=== PATIENT | male | born 1975 | race Caucasian/White ===

== ENCOUNTER → 2016-06-26 | Outpatient (CLI) | payer MEDICARE, OTHER | END | disposition home or self-care (01) | LOC: LABWHC1 09:49 | PROVIDERS: ATTEND Internal Medicine Nephrology | DX: N39.0 Urinary tract infection, site not specified (principal); Z94.0 Kidney transplant status; Z79.899 Other long term (current) drug therapy | CPT/HCPCS: 87086 ==

== ENCOUNTER → 2017-11-10 | Outpatient (CLI) | payer MEDICARE, OTHER | END | disposition home or self-care (01) | LOC: LABWHC1 10:06 | PROVIDERS: ATTEND Internal Medicine Endocrinology, Diabetes & Metabolism | DX: E10.65 Type 1 diabetes mellitus with hyperglycemia (principal) | CPT/HCPCS: 36415; 84681 ==

== ENCOUNTER → 2018-09-19 | Outpatient (CLI) | payer MEDICARE, OTHER | END | disposition home or self-care (01) | LOC: LABWHC1 11:03 | PROVIDERS: ATTEND Nurse Practitioner Family | DX: Z53.9 Procedure and treatment not carried out, unspecified reason (principal) ==

== ENCOUNTER 2018-11-02 19:25 | Inpatient (IN) | payer MEDICARE, OTHER ==
[2018-11-02] MEDS ORDERED: ONDANSETRON 4 MG/2 ML VIAL IVP STA (19:53)
[2018-11-02] MEDS ORDERED: SODIUM CHLORIDE 0.9% 1,000 ML IV STA (19:53)
[2018-11-02] MEDS ORDERED: PROMETHAZINE INJ 25 MG in SODIUM CHLORIDE 0.9% 50 ML IVPB STA (19:58)
--- NOTE | 2018-11-02 20:01 | ED ---
Abdominal Pain HPI - General Chief Complaint: Abdominal Pain Stated Complaint: Vomiting Time Seen by Provider: 11/02/18 19:35 Source: patient, EMS Mode of arrival: EMS Limitations: no limitations - History of Present Illness Initial Comments: Patient is a 43-year-old male with history of type 1 diabetes, pancreatic and kidney transplant is presenting to the emergency department after a transfer from [facility] for intractable nausea and vomiting and abdominal pain. Patient reports she developed nausea and vomiting, as well as sudden onset of generalized abdominal pain earlier today. Patient reports the pain is not alleviated with any specific movements. Patient denies any hemoptysis the states his vomit is dark. Patient reports generalized abdominal pain that radiates to the back. Patient denies any urinary or bowel symptoms. Patient was given antiemetics, Dilaudid of fluids. Patient has an insulin pump - Related Data Home Medications Medication Instructions Recorded Confirmed Aspirin 325 mg PO DAILY 02/17/15 11/02/18 Magnesium Oxide [Mag-Ox] 400 mg PO TID 02/17/15 11/02/18 predniSONE 10 mg PO DAILY 06/22/15 11/02/18 Zolpidem Tartrate [Ambien] 5 mg PO HS 11/17/16 11/02/18 Itraconazole Oral Susp [Sporanox 20 mg PO BID 02/03/17 11/02/18 Oral Susp] Tacrolimus [Prograf] 0.5 mg PO DAILY 02/03/17 11/02/18 Insulin Aspart (For Pump) [NovoLOG 0.01 unit SQ-PUMP CONTINUOUS 11/02/18 11/02/18 (For Pump)] Lisinopril [Zestril] 2.5 mg PO HS 11/02/18 11/02/18 buPROPion SR [Wellbutrin Sr] 150 mg PO BID 11/02/18 11/02/18 Allergies Allergy/AdvReac Type Severity Reaction Status Date / Time No Known Allergies Allergy Verified 11/02/18 20:18 Review of Systems ROS Statement: Those systems with pertinent positive or pertinent negative responses have been documented in the HPI. ROS Other: All systems not noted in ROS Statement are negative. Past Medical History Past Medical History: Coronary Artery Disease (CAD), Diabetes Mellitus, Dialysis, Eye Disorder, GERD/Reflux, Hypertension, Osteoarthritis (OA), Renal Disease, Thyroid Disorder Additional Past Medical History / Comment(s): heart murmer, LEFT EYE DIABETIC RETINOPATHY, psoriasis, occ edema lower legs, hx ulcer, hemodialysis (Mon,Wed,Fri), hx anemia, renal failure, IBS. CMV virus. History of Any Multi-Drug Resistant Organisms: None Reported Past Surgical History: Cholecystectomy, Orthopedic Surgery Additional Past Surgical History / Comment(s): LT ARM FISTULA FOR DIAYLISIS, tendon surgery rt hand,. Kidney and Pancreas transplant - September 2014. PICC line insertion and removal. Past Anesthesia/Blood Transfusion Reactions: Motion Sickness Additional Past Anesthesia/Blood Transfusion Reaction / Comment(s): PANIC ATTACKS Past Psychological History: Anxiety Smoking Status: Former smoker Past Alcohol Use History: None Reported Past Drug Use History: Marijuana - Past Family History Father Family Medical History: Cancer, Liver Disease, Myocardial Infarction (ID) Additional Family Medical History / Comment(s): AT AGE 50 Mother Family Medical History: Cancer, Thyroid Disorder Additional Family Medical History / Comment(s): THYROID CA. General Exam Limitations: no limitations General appearance: alert, in no apparent distress Head exam: Present: atraumatic, normocephalic, normal inspection Eye exam: Present: normal appearance, PERRL, EOMI Pupils: Present: normal accommodation ENT exam: Present: normal exam, normal oropharynx, mucous membranes dry, TM's normal bilaterally, normal external ear exam Neck exam: Present: normal inspection, full ROM Respiratory exam: Present: normal lung sounds bilaterally Cardiovascular Exam: Present: regular rate, normal rhythm, systolic murmur GI/Abdominal exam: Present: soft, tenderness (Generalized tenderness), normal bowel sounds. Absent: guarding, rebound Extremities exam: Present: normal inspection, full ROM, normal capillary refill, other (+2 dorsalis pedis and posterior tibialis bilaterally.). Absent: pedal edema, joint swelling Back exam: Present: normal inspection, full ROM Neurological exam: Present: alert, oriented X3 Psychiatric exam: Present: normal affect, normal mood Skin exam: Present: warm, intact, normal color Course Vital Signs 11/02/18 11/02/18 11/02/18 19:28 19:44 20:26 Temperature 97.7 F Pulse Rate 74 77 81 Respiratory 18 18 18 Rate Blood Pressure 197/123 189/105 189/110 O2 Sat by Pulse 98 99 96 Oximetry Medical Decision Making - Medical Decision Making Patient is a 43-year-old male with history of type 1 diabetes, pancreatic and kidney transplant is presenting to the emergency department via transfer from [facility] for nausea vomiting abdominal pain this symptoms started today with a sudden onset. Patient denies any hemoptysis. Patient reports generalized abdominal pain with no alleviating or aggravating factors. Patient does use an insulin pump. On initial ED evaluation [facility] he had elevated lactate of 2.3. Patient was given fluids, analgesia and antiemetics with minimal improvement. Patient was sent to [facility]. Repeat labs are somewhat unremarkable. Lactic is within normal range. Patient given fluids and antiemetics overnight tried at the previous hospital. Patient will be admitted for further medical management. Dr. Youssef also examined the patient and is in agreement with the treatment plan. Admitting physician is Dr. Posadas - Lab Data Result diagrams: 11/02/18 19:50 11/02/18 19:50 Lab Results 11/02/18 11/02/18 11/02/18 Range/Units 19:30 19:50 19:50 WBC 8.9 (3.8-10.6) k/uL RBC 6.19 H (4.30-5.90) m/uL Hgb 16.9 (13.0-17.5) gm/dL Hct 53.9 H (39.0-53.0) % MCV 87.1 (80.0-100.0) fL MCH 27.4 (25.0-35.0) pg MCHC 31.4 (31.0-37.0) g/dL RDW 19.2 H (11.5-15.5) % Plt Count 271 (150-450) k/uL Neutrophils % 83 % Lymphocytes % 9 % Monocytes % 5 % Eosinophils % 0 % Basophils % 1 % Neutrophils # 7.4 (1.3-7.7) k/uL Lymphocytes # 0.8 L (1.0-4.8) k/uL Monocytes # 0.5 (0-1.0) k/uL Eosinophils # 0.0 (0-0.7) k/uL Basophils # 0.1 (0-0.2) k/uL Hypochromasia Slight Anisocytosis Slight Sodium 138 (137-145) mmol/L Potassium 4.8 (3.5-5.1) mmol/L Chloride 106 (98-107) mmol/L Carbon Dioxide 22 (22-30) mmol/L Anion Gap 10 mmol/L BUN 20 (9-20) mg/dL Creatinine 0.93 (0.66-1.25) mg/dL Est GFR (CKD-EPI)AfAm >90 (>60 ml/min/1.73 sqM) Est GFR (CKD-EPI)NonAf >90 (>60 ml/min/1.73 sqM) Glucose 146 H (74-99) mg/dL Plasma Lactic Acid Lazaro (0.7-2.0) mmol/L Calcium 9.4 (8.4-10.2) mg/dL Total Bilirubin 0.7 (0.2-1.3) mg/dL AST 43 (17-59) U/L ALT 46 (21-72) U/L Alkaline Phosphatase 59 (38-126) U/L Total Protein 6.8 (6.3-8.2) g/dL Albumin 3.8 (3.5-5.0) g/dL Amylase 34 (30-110) U/L Lipase 37 (23-300) U/L Urine Color Yellow Urine Appearance Clear (Clear) Urine pH 6.0 (5.0-8.0) Ur Specific [place] 1.015 (1.001-1.035) Urine Protein Trace H (Negative) Urine Glucose (UA) Trace H (Negative) Urine Ketones 1+ H (Negative) Urine Blood Trace H (Negative) Urine Nitrite Negative (Negative) Urine Bilirubin Negative (Negative) Urine Urobilinogen <2.0 (<2.0) mg/dL Ur Leukocyte Esterase Negative (Negative) Urine RBC 6 H (0-5) /hpf Urine WBC 1 (0-5) /hpf Ur Squamous Epith Cells <1 (0-4) /hpf Urine Mucus Rare H (None) /hpf 11/02/18 Range/Units 19:50 WBC (3.8-10.6) k/uL RBC (4.30-5.90) m/uL Hgb (13.0-17.5) gm/dL Hct (39.0-53.0) % MCV (80.0-100.0) fL MCH (25.0-35.0) pg MCHC (31.0-37.0) g/dL RDW (11.5-15.5) % Plt Count (150-450) k/uL Neutrophils % % Lymphocytes % % Monocytes % % Eosinophils % % Basophils % % Neutrophils # (1.3-7.7) k/uL Lymphocytes # (1.0-4.8) k/uL Monocytes # (0-1.0) k/uL Eosinophils # (0-0.7) k/uL Basophils # (0-0.2) k/uL Hypochromasia Anisocytosis Sodium (137-145) mmol/L Potassium (3.5-5.1) mmol/L Chloride (98-107) mmol/L Carbon Dioxide (22-30) mmol/L Anion Gap mmol/L BUN (9-20) mg/dL Creatinine (0.66-1.25) mg/dL Est GFR (CKD-EPI)AfAm (>60 ml/min/1.73 sqM) Est GFR (CKD-EPI)NonAf (>60 ml/min/1.73 sqM) Glucose (74-99) mg/dL Plasma Lactic Acid [place] 1.2 (0.7-2.0) mmol/L Calcium (8.4-10.2) mg/dL Total Bilirubin (0.2-1.3) mg/dL AST (17-59) U/L ALT (21-72) U/L Alkaline Phosphatase (38-126) U/L Total Protein (6.3-8.2) g/dL Albumin (3.5-5.0) g/dL Amylase (30-110) U/L Lipase (23-300) U/L Urine Color Urine Appearance (Clear) Urine pH (5.0-8.0) Ur Specific [place] (1.001-1.035) Urine Protein (Negative) Urine Glucose (UA) (Negative) Urine Ketones (Negative) Urine Blood (Negative) Urine Nitrite (Negative) Urine Bilirubin (Negative) Urine Urobilinogen (<2.0) mg/dL Ur Leukocyte Esterase (Negative) Urine RBC (0-5) /hpf Urine WBC (0-5) /hpf Ur Squamous Epith Cells (0-4) /hpf Urine Mucus (None) /hpf Disposition Clinical Impression: Nausea & vomiting, Abdominal pain Disposition: ADMITTED IP TO THIS [facility] Condition: Stable Instructions (If sedation given, give patient instructions): Abdominal Pain (ED) Additional Instructions: Patient will be admitted Is patient prescribed a controlled substance at d/c from ED?: No Referrals: None,Stated [Primary Care Provider] - 1-2 days Time of Disposition: 20:44
[2018-11-02 20:10] LABS: ALT 46 U/L (21-72); AST 43 U/L (17-59); African American GFR (CKD) >90 (>60 ml/min/1.73 sqM); Albumin 3.8 g/dL (3.5-5.0); Alkaline Phosphatase 59 U/L (38-126); Amylase 34 U/L (30-110); Anion Gap 10 mmol/L; Blood Urea Nitrogen 20 mg/dL (9-20); Calcium 9.4 mg/dL (8.4-10.2); Carbon Dioxide 22 mmol/L (22-30); Chloride 106 mmol/L (98-107); Glucose 146 mg/dL (74-99); Sodium 138 mmol/L (137-145); Total Bilirubin 0.7 mg/dL (0.2-1.3); Total Protein 6.8 g/dL (6.3-8.2)
[2018-11-02 20:12] LABS: Potassium 4.8 mmol/L (3.5-5.1)
[2018-11-02 20:17] LABS: Anisocytosis Slight; Basophils # (A) 0.1 k/uL (0-0.2); Basophils % (A) 1 %; Eosinophils % (A) 0 %; HCT 53.9 % (39.0-53.0); HGB 16.9 gm/dL (13.0-17.5); Hypochromasia Slight; Lymphocytes # (A) 0.8 k/uL (1.0-4.8); Lymphocytes % (A) 9 %; MCH 27.4 pg (25.0-35.0); MCHC 31.4 g/dL (31.0-37.0); MCV 87.1 fL (80.0-100.0); Mean Platelet Volume 7.2; Monocytes # (A) 0.5 k/uL (0-1.0); Monocytes % (A) 5 %; Neutrophils # (A) 7.4 k/uL (1.3-7.7); Neutrophils % (A) 83 %; Platelet Count 271 k/uL (150-450); RBC 6.19 m/uL (4.30-5.90); RDW 19.2 % (11.5-15.5); WBC 8.9 k/uL (3.8-10.6)
[2018-11-02 20:31] LABS: Appearance,Urine Clear (Clear); Bilirubin,Urine Negative (Negative); Blood,Urine Trace (Negative); Color,Urine Yellow; Glucose,Urine (UA) Trace (Negative); Ketones,Urine 1+ (Negative); Leukocyte Esterase,Urine Negative (Negative); Mucus,Urine Rare /hpf; Nitrite,Urine Negative (Negative); Protein,Urine Trace (Negative); RBC,Urine 6 /hpf (0-5); Specific Gravity,Urine 1.015 (1.001-1.035); Squamous Epithelial Cell,Urine <1 /hpf (0-4); Urobilinogen,Urine <2.0 mg/dL (<2.0); WBC,Urine 1 /hpf (0-5)
[2018-11-02] MEDS ORDERED: NALOXONE 0.4 MG/ML 1 ML VIAL IV PRN (20:54)
[2018-11-02] MEDS: HYDROmorphone 1 MG/ML 1 ML SYRINGE IVP PRN (21:23)
[2018-11-02] MEDS ORDERED: hydrALAZINE HCL 20 MG/ML 1 ML VIAL IVP STA (21:24)
[2018-11-02] MEDS: SODIUM CHLORIDE 0.9% 1,000 ML IV SCH (21:35)
[2018-11-02] MEDS ORDERED: PROMETHAZINE 25 MG TAB PO PRN (22:00)
[2018-11-02] MEDS: ONDANSETRON 4 MG/2 ML VIAL IVP PRN (22:01)
[2018-11-02 22:41] LABS: Glucose,Whole Blood 117 mg/dL (75-99)
[2018-11-03 00:52] LABS: Glucose,Whole Blood 112 mg/dL (75-99)
[2018-11-03] MEDS: PROCHLORPERAZINE 5 MG TAB PO PRN ×2 (02:01→12:01)
[2018-11-03] MEDS: HYDROmorphone 0.5 MG/0.5 ML SYRINGE IVP PRN ×3 (02:04→18:20)
[2018-11-03] MEDS: ONDANSETRON 4 MG/2 ML VIAL IVP PRN ×2 (05:07→14:39)
[2018-11-03] MEDS ORDERED: INSULIN ASPART (NovoLOG) 100 UNIT/ML VIAL SQ PRN (05:13)
[2018-11-03] MEDS ORDERED: INSULIN PUMP BASAL RATES 1 EACH MISC MISCELLANE PRN (05:13)
[2018-11-03] MEDS ORDERED: INSPUCOR MISCELLANE PRN (05:13)
[2018-11-03 07:13] LABS: Glucose,Whole Blood 117 mg/dL (75-99)
[2018-11-03] MEDS: INSULIN PUMP MEAL BOLUS 1 UNIT MISC MISCELLANE SCH ×4 (07:54→20:57)
[2018-11-03 11:50] LABS: Glucose,Whole Blood 120 mg/dL (75-99)
[2018-11-03] MEDS: SODIUM CHLORIDE 0.9% 1,000 ML IV SCH (12:09)
--- NOTE | 2018-11-03 12:22 | P.HPIM ---
History of Present Illness H&P Date: 11/03/18 Chief Complaint: If abdominal pain/vomiting 43-year-old male with history of type 1 diabetes, pancreatic and kidney transplant is presenting to the emergency department after a transfer from [facility] for intractable nausea and vomiting and abdominal pain. Patient reports she developed nausea and vomiting, as well as sudden onset of generalized abdominal pain earlier today. Patient reports the pain is not alleviated with any specific movements. Patient denies any hemoptysis the states his vomit is dark. Patient reports generalized abdominal pain that radiates to the back. Patient denies any urinary or bowel symptoms. Patient was given antiemetics, Dilaudid of fluids. Patient has an insulin pump Initial workup done at the outside facility including a CT of abdomen was unremarkable; patient is transferred to our facility for higher level of care Review of Systems Constitutional: Denies chills, Denies fever Eyes: denies blurred vision Ears, nose, mouth and throat: Reports epistaxis Cardiovascular: Denies chest pain, Denies dyspnea on exertion Respiratory: Denies cough with sputum Gastrointestinal: Reports abdominal pain, Reports nausea, Reports vomiting, Denies heartburn Genitourinary: Denies dysuria, Denies hematuria Musculoskeletal: Denies frequent falls, Denies gait dysfunction Integumentary: Denies change in hair/nails, Denies darkening of skin Neurological: Denies convulsions Psychiatric: Denies anxiety Endocrine: Denies cold intolerance, Denies heat intolerance Hematologic/Lymphatic: Denies easy bleeding, Denies easy bruising Past Medical History Past Medical History: Coronary Artery Disease (CAD), Diabetes Mellitus, Eye Disorder, GERD/Reflux, Hypertension, Osteoarthritis (OA), Renal Disease, Thyroid Disorder Additional Past Medical History / Comment(s): heart murmer, LEFT EYE DIABETIC RETINOPATHY, psoriasis, occ edema lower legs, hx ulcer, hemodialysis (Mon,Wed,Sun) not since 2014, hx anemia, renal failure, IBS. CMV virus. History of Any Multi-Drug Resistant Organisms: None Reported Past Surgical History: Cholecystectomy, Orthopedic Surgery Additional Past Surgical History / Comment(s): LT ARM FISTULA FOR DIAYLISIS, tendon surgery rt hand,. Kidney and Pancreas transplant - September 2014. PICC line insertion and removal. Past Anesthesia/Blood Transfusion Reactions: Motion Sickness Additional Past Anesthesia/Blood Transfusion Reaction / Comment(s): PANIC ATTACKS Past Psychological History: Anxiety Additional Psychological History / Comment(s): panic attacks Smoking Status: Former smoker Past Alcohol Use History: None Reported Additional Past Alcohol Use History / Comment(s): QUIT SMOKING 2008 Past Drug Use History: Marijuana Additional Drug Use History / Comment(s): denies use marijuana - Past Family History Father Family Medical History: Cancer, Liver Disease, Myocardial Infarction (NH) Additional Family Medical History / Comment(s): AT AGE 50 Mother Family Medical History: Cancer, Thyroid Disorder Additional Family Medical History / Comment(s): THYROID CA. Medications and Allergies Home Medications Medication Instructions Recorded Confirmed Type Aspirin 325 mg PO DAILY 02/17/15 11/02/18 History Magnesium Oxide [Mag-Ox] 400 mg PO TID 02/17/15 11/02/18 History predniSONE 10 mg PO DAILY 06/22/15 11/02/18 History Zolpidem Tartrate [Ambien] 5 mg PO HS 11/17/16 11/02/18 History Itraconazole Oral Susp [Sporanox 20 mg PO BID 02/03/17 11/02/18 History Oral Susp] Tacrolimus [Prograf] 0.5 mg PO DAILY 02/03/17 11/02/18 History Insulin Aspart (For Pump) [NovoLOG 0.01 unit SQ-PUMP CONTINUOUS 11/02/18 11/02/18 History (For Pump)] Lisinopril [Zestril] 2.5 mg PO HS 11/02/18 11/02/18 History buPROPion SR [Wellbutrin Sr] 150 mg PO BID 11/02/18 11/02/18 History Allergies Allergy/AdvReac Type Severity Reaction Status Date / Time No Known Allergies Allergy Verified 11/02/18 20:18 Physical Exam Vitals: Vital Signs Temp Pulse Pulse Resp BP BP Pulse Ox 11/03/18 08:20 98.3 F 74 16 187/88 95 11/03/18 00:19 98.2 F 74 14 142/85 97 11/02/18 22:40 81 188/97 11/02/18 22:15 98.0 F 82 14 184/102 97 11/02/18 21:43 97.7 F 88 18 126/89 96 11/02/18 21:33 88 18 126/89 96 11/02/18 20:26 81 18 189/110 96 11/02/18 19:44 77 18 189/105 99 11/02/18 19:28 97.7 F 74 18 197/123 98 Intake and Output 11/02/18 11/03/18 11/03/18 22:59 06:59 14:59 Intake Total 400 Balance 400 Intake: Intake, IV Titration 400 Amount Sodium Chloride 0.9% 1, 400 000 ml @ 75 mls/hr IV . [id number] [facility] Rx#:[id number] Other: # Voids 1 0 Weight 74.843 kg Limitations: no limitations General appearance: alert, in no apparent distress Head exam: Present: atraumatic, normocephalic, normal inspection Eye exam: Present: normal appearance, PERRL, EOMI Pupils: Present: normal accommodation ENT exam: Present: normal exam, normal oropharynx, mucous membranes dry, TM's normal bilaterally, normal external ear exam Neck exam: Present: normal inspection, full ROM Respiratory exam: Present: normal lung sounds bilaterally Cardiovascular Exam: Present: regular rate, normal rhythm, systolic murmur GI/Abdominal exam: Present: soft, tenderness (Generalized tenderness), normal bowel sounds. Absent: guarding, rebound Extremities exam: Present: normal inspection, full ROM, normal capillary refill, other (+2 dorsalis pedis and posterior tibialis bilaterally.). Absent: pedal edema, joint swelling Back exam: Present: normal inspection, full ROM Neurological exam: Present: alert, oriented X3 Psychiatric exam: Present: normal affect, normal mood Skin exam: Present: warm, intact, normal color Results CBC & Chem 7: 11/02/18 19:50 11/02/18 19:50 Labs: Abnormal Lab Results - Last 24 Hours (Table) 11/02/18 11/02/18 11/02/18 Range/Units 19:30 19:50 19:50 RBC 6.19 H (4.30-5.90) m/uL Hct 53.9 H (39.0-53.0) % RDW 19.2 H (11.5-15.5) % Lymphocytes # 0.8 L (1.0-4.8) k/uL Glucose 146 H (74-99) mg/dL POC Glucose (mg/dL) (75-99) mg/dL Urine Protein Trace H (Negative) Urine Glucose (UA) Trace H (Negative) Urine Ketones 1+ H (Negative) Urine Blood Trace H (Negative) Urine RBC 6 H (0-5) /hpf Urine Mucus Rare H (None) /hpf 11/02/18 11/03/18 11/03/18 Range/Units 22:40 00:49 07:11 RBC (4.30-5.90) m/uL Hct (39.0-53.0) % RDW (11.5-15.5) % Lymphocytes # (1.0-4.8) k/uL Glucose (74-99) mg/dL POC Glucose (mg/dL) 117 H 112 H 117 H (75-99) mg/dL Urine Protein (Negative) Urine Glucose (UA) (Negative) Urine Ketones (Negative) Urine Blood (Negative) Urine RBC (0-5) /hpf Urine Mucus (None) /hpf Thrombosis Risk Factor Assmnt - Choose All That Apply Any of the Below Risk Factors Present?: Yes Each Factor Represents 1 point: Age 41-60 years Other Risk Factors: No Other congenital or acquired thrombophilia - If yes, enter type in comment: No Thrombosis Risk Factor Assessment Total Risk Factor Score: 1 Thrombosis Risk Factor Assessment Level: Low Risk Assessment and Plan Assessment: 1. Intractable abdominal pain/nausea/vomiting - We will continue with IV fluid hydration; advance diet as tolerated - Consult GI for further recommendations 2. Uncontrolled hypertension; restart patient on home dose of lisinopril 2.5 mg daily; we will add hydralazine to be used when necessary for systolic blood pressure greater than 160 3. Diabetes mellitus type 1; patient uses insulin pump; we will continue; we will monitor Accu-Cheks every before meals and at bedtime with insulin sliding scale 4. Depression; continue with Wellbutrin 150 mg by mouth twice a day 5. DVT prophylaxis; early ambulation CODE STATUS; full code
[2018-11-03] MEDS: MAGNESIUM OXIDE 400 MG TAB PO SCH ×2 (16:00→20:56)
[2018-11-03 17:29] LABS: Glucose,Whole Blood 110 mg/dL (75-99)
[2018-11-03 20:22] LABS: Glucose,Whole Blood 120 mg/dL (75-99)
[2018-11-03] MEDS: LISINOPRIL 2.5 MG TAB PO SCH (20:56)
[2018-11-03] MEDS: buPROPion SR 150 MG TABLET.ER PO SCH (20:56)
[2018-11-03] MEDS: ITRACONAZOLE ORAL SUSP 1,500 MG/150 ML BOTTLE PO SCH (20:56)
[2018-11-04] MEDS: SODIUM CHLORIDE 0.9% 1,000 ML IV SCH ×2 (00:07→13:00)
[2018-11-04 02:13] LABS: Glucose,Whole Blood 105 mg/dL (75-99)
[2018-11-04] MEDS: HYDROmorphone 0.5 MG/0.5 ML SYRINGE IVP PRN ×4 (04:26→18:56)
[2018-11-04 06:51] LABS: Glucose,Whole Blood 85 mg/dL (75-99)
[2018-11-04 07:19] LABS: Glucose,Whole Blood 89 mg/dL (75-99)
[2018-11-04 08:13] LABS: African American GFR (CKD) >90 (>60 ml/min/1.73 sqM); Anion Gap 7 mmol/L; Blood Urea Nitrogen 19 mg/dL (9-20); Calcium 9.4 mg/dL (8.4-10.2); Carbon Dioxide 26 mmol/L (22-30); Chloride 101 mmol/L (98-107); Glucose 88 mg/dL (74-99); Sodium 134 mmol/L (137-145)
[2018-11-04 08:33] LABS: Anisocytosis Slight; Basophils # (A) 0.1 k/uL (0-0.2); Basophils % (A) 1 %; Eosinophils % (A) 0 %; HCT 56.3 % (39.0-53.0); HGB 17.9 gm/dL (13.0-17.5); Lymphocytes # (A) 1.4 k/uL (1.0-4.8); Lymphocytes % (A) 15 %; MCH 27.7 pg (25.0-35.0); MCHC 31.8 g/dL (31.0-37.0); Mean Platelet Volume 7.1; Monocytes # (A) 0.7 k/uL (0-1.0); Monocytes % (A) 7 %; Neutrophils # (A) 7.2 k/uL (1.3-7.7); Neutrophils % (A) 74 %; Platelet Count 285 k/uL (150-450); RBC 6.47 m/uL (4.30-5.90); RDW 17.9 % (11.5-15.5); WBC 9.8 k/uL (3.8-10.6)
[2018-11-04] MEDS: INSULIN PUMP MEAL BOLUS 1 UNIT MISC MISCELLANE SCH ×4 (09:55→21:21)
[2018-11-04] MEDS: MAGNESIUM OXIDE 400 MG TAB PO SCH ×3 (09:56→21:17)
[2018-11-04] MEDS: TACROLIMUS 0.5 MG CAP PO SCH (09:56)
[2018-11-04] MEDS: predniSONE 10 MG TAB PO SCH (09:56)
[2018-11-04] MEDS: ASPIRIN 325 MG TAB PO SCH (09:56)
[2018-11-04] MEDS: buPROPion SR 150 MG TABLET.ER PO SCH ×2 (09:56→21:34)
[2018-11-04] MEDS: ITRACONAZOLE ORAL SUSP 1,500 MG/150 ML BOTTLE PO SCH ×2 (09:57→21:18)
[2018-11-04 12:03] LABS: Glucose,Whole Blood 101 mg/dL (75-99)
[2018-11-04] MEDS ORDERED: INSULIN PUMP TARGET GLUCOSE 1 EACH MISC MISCELLANE PRN (12:39)
[2018-11-04] MEDS ORDERED: INSULIN PUMP ACTIVE INSULIN 1 EACH MISC MISCELLANE PRN (12:39)
--- NOTE | 2018-11-04 16:45 | P.PN ---
Subjective Progress Note Date: 11/04/18 Principal diagnosis: 43-year-old male with history of type 1 diabetes, pancreatic and kidney transplant is presenting to the emergency department after a transfer from [facility] for intractable nausea and vomiting and abdominal pain. Patient reports he developed nausea and vomiting, as well as sudden onset of generalized abdominal pain earlier today. Patient reports the pain is not alleviated with any specific movements. Patient denies any hemoptysis the states his vomit is dark. Patient reports generalized abdominal pain that radiates to the back. Patient denies any urinary or bowel symptoms. Patient was given antiemetics, Dilaudid of fluids. Patient has an insulin pump Initial workup done at the outside facility including a CT of abdomen was unremarkable; patient is transferred to our facility for higher level of care 11/04/2018 Patient is up walking around in the room in no acute distress. Is currently waiting a consult with gastroenterology at this time. Patient denies any nausea or vomiting and has slowly started to eat and is being monitored closely. Patient does use an insulin pump and blood sugars are being monitored before meals at bedtime. Patient states he feels much better today. Patient denies any abdominal discomfort at this time. Chest pain, shortness of breath, or palpitations at this time. Patient is afebrile. Patient states he is unsure if this was his pancreas acting up or if this was just some type of gastric bug but feels much better. Guarded prognosis. Objective - Vital Signs Vital signs: Vital Signs Temp 97.9 F 11/04/18 15:00 Pulse 102 H 11/04/18 15:00 Resp 16 11/04/18 15:00 BP 146/86 11/04/18 15:00 Pulse Ox 97 11/04/18 15:00 Intake & Output 11/03/18 11/04/18 11/04/18 18:59 06:59 18:59 Intake Total 1290 950 Balance 1290 950 Intake: Intake, IV Titration 990 450 Amount Sodium Chloride 0.9% 1, 990 450 000 ml @ 75 mls/hr IV . [id number] [facility] Rx#:[id number] Oral 300 500 Other: Voiding Method Toilet Toilet # Voids 3 1 - Exam Gen: This is a 43-year-old male up and around the room in no acute distress. V ital signs are stable. Temp is 98.2F, pulse is 82, respirations are 16, blood pressure is 156/77, oxygen saturation is 94% on room air. HEENT: Head is atraumatic, normocephalic. Pupils equal, round. Sclerae is anicteric. NECK: Supple. No JVD. No lymphadenopathy. No thyromegaly. LUNGS: Clear to auscultation. No wheezes or rhonchi. No intercostal retractions. HEART: Regular rate and rhythm. No murmur. ABDOMEN: Soft. Thin. Bowel sounds are present. No masses. No tenderness. EXTREMITIES: No pedal edema. No calf tenderness. NEUROLOGICAL: Patient is awake, alert and oriented x3. Cranial nerves 2 through 12 are grossly intact. - Labs CBC & Chem 7: 11/04/18 07:02 11/04/18 07:02 Labs: Abnormal Lab Results - Last 24 Hours (Table) 11/03/18 11/03/18 11/04/18 Range/Units 17:27 20:21 02:10 RBC (4.30-5.90) m/uL Hgb (13.0-17.5) gm/dL Hct (39.0-53.0) % RDW (11.5-15.5) % Sodium (137-145) mmol/L POC Glucose (mg/dL) 110 H 120 H 105 H (75-99) mg/dL 11/04/18 11/04/18 11/04/18 Range/Units 07:02 07:02 11:58 RBC 6.47 H (4.30-5.90) m/uL Hgb 17.9 H (13.0-17.5) gm/dL Hct 56.3 H (39.0-53.0) % RDW 17.9 H (11.5-15.5) % Sodium 134 L (137-145) mmol/L POC Glucose (mg/dL) 101 H (75-99) mg/dL Microbiology - Last 24 Hours (Table) 11/02/18 20:25 Blood Culture - Preliminary Blood No Growth after 24 hours Assessment and Plan Assessment: 1. Intractable abdominal pain/nausea/vomiting - We will continue with IV fluid hydration; advance diet as tolerated - Consult GI for further recommendations; currently awaiting GI consult. Patient denies any nausea and vomiting today and has slowly restarted diet and has been tolerating thus far. 2. Uncontrolled hypertension; restart patient on home dose of lisinopril 2.5 mg daily; we will add hydralazine to be used when necessary for systolic blood pressure greater than 160 3. Diabetes mellitus type 1; patient uses insulin pump; we will continue; we will monitor Accu-Cheks every before meals and at bedtime with insulin sliding scale 4. Depression; continue with Wellbutrin 150 mg by mouth twice a day 5. DVT prophylaxis; early ambulation CODE STATUS; full code Recommendations and discussion Recommend to continue current medications, management, and symptomatic treatment. Currently awaiting gastric consult and appreciate further recommendations. Patient is currently tolerating diet and advancing slowly. Will continue to monitor vital signs and labs closely. Will monitor blood sugars closely. Guarded prognosis. Further recommendations to follow. Possible discharge in 24-48 hours.
[2018-11-04 17:06] LABS: Glucose,Whole Blood 103 mg/dL (75-99)
[2018-11-04 20:07] LABS: Glucose,Whole Blood 94 mg/dL (75-99)
[2018-11-04] MEDS: LISINOPRIL 2.5 MG TAB PO SCH (21:17)
--- NOTE | 2018-11-04 23:47 | P.CONS ---
History of Present Illness - Reason for Consult Consult date: 11/04/18 Nausea and vomiting Requesting physician: Veronica James - Chief Complaint Nausea and vomiting, abdominal pain - History of Present Illness 43-year-old male with a history of juvenile type 1 diabetes who is status post pancreatic and kidney transplant at [facility] presented to the emergency department initially had [facility] with complaints of intract able nausea and vomiting with associated abdominal pain. The patient reports that on Sunday he felt unwell. He subsequently developed multiple episodes of vomiting. No association with food the patient was unable to hold down any liquids or his pills. He denies any sick contacts, antibiotics, new medications or unusual foods but does report eating out prior to development of symptoms. No similar episodes in the past. Given the patient's history of multiorgan transplant was concerned about missing his immunosuppressants. He reports associated abdominal pain described mainly a soreness in association with his multiple episodes of retching. He has undergone EGD and colonoscopy in the past prior to his transplant. On presentation to the hospital the patient had total bilirubin 0.7, alkaline phosphatase 54, AST 43 and ALTs 46. WBC 9.8, hemoglobin 17.9, platelet count 285,000 with a normal amylase and lipase. The patient was given fluid resuscitation and antiemetic therapy reports he is currently feeling better. He tolerated toast and juice in the morning as well as a light lunch. Review of Systems REVIEW OF SYSTEMS: CONSTITUTIONAL: Denies any fevers, chills, weight change or fatigue. CARDIOVASCULAR: Denies any chest pain, palpitations high or low blood pressures RESPIRATORY: Denies any shortness of breath, hemoptysis or cough. GENITOURINARY: No dysuria or hematuria. MUSCULOSKELETAL: No weakness reported. SKIN: Denies any new rashes or lesions, jaundice or pallor. PSYCHIATRIC: Denies any depression or anxiety. NEUROLOGY: Denies headache, denies any new focal deficits. EARS/NOSE/THROAT: No recent hearing change, congestion, nasal discharge or sore throat. EYES: No pain in eyes, discharge or change in vision. GASTROINTESTINAL: As per HPI. Past Medical History Past Medical History: Coronary Artery Disease (CAD), Diabetes Mellitus, Eye Disorder, GERD/Reflux, Hypertension, Osteoarthritis (OA), Renal Disease, Thyroid Disorder Additional Past Medical History / Comment(s): heart murmer, LEFT EYE DIABETIC RETINOPATHY, psoriasis, occ edema lower legs, hx ulcer, hemodialysis (Mon,Wed,Fri) not since 2014, hx anemia, renal failure, IBS. CMV virus. History of Any Multi-Drug Resistant Organisms: None Reported Past Surgical History: Cholecystectomy, Orthopedic Surgery Additional Past Surgical History / Comment(s): LT ARM FISTULA FOR DIAYLISIS, tendon surgery rt hand,. Kidney and Pancreas transplant - September 2014. PICC line insertion and removal. Past Anesthesia/Blood Transfusion Reactions: Motion Sickness Additional Past Anesthesia/Blood Transfusion Reaction / Comm: PANIC ATTACKS Past Psychological History: Anxiety Additional Psychological History / Comment(s): panic attacks Smoking Status: Former smoker Past Alcohol Use History: None Reported Additional Past Alcohol Use History / Comment(s): QUIT SMOKING 2008 Past Drug Use History: Marijuana Additional Drug Use History / Comment(s): denies use marijuana - Past Family History Father Family Medical History: Cancer, Liver Disease, Myocardial Infarction ([place]) Additional Family Medical History / Comment(s): AT AGE 50 Mother Family Medical History: Cancer, Thyroid Disorder Additional Family Medical History / Comment(s): THYROID CA. Medications and Allergies Home Medications Medication Instructions Recorded Confirmed Type Aspirin 325 mg PO DAILY 02/17/15 11/02/18 History Magnesium Oxide [Mag-Ox] 400 mg PO TID 02/17/15 11/02/18 History predniSONE 10 mg PO DAILY 06/22/15 11/02/18 History Zolpidem Tartrate [Ambien] 5 mg PO HS 11/17/16 11/02/18 History Itraconazole Oral Susp [Sporanox 20 mg PO BID 02/03/17 11/02/18 History Oral Susp] Tacrolimus [Prograf] 0.5 mg PO DAILY 02/03/17 11/02/18 History Insulin Aspart (For Pump) [NovoLOG 0.01 unit SQ-PUMP CONTINUOUS 11/02/18 11/02/18 History (For Pump)] Lisinopril [Zestril] 2.5 mg PO HS 11/02/18 11/02/18 History buPROPion SR [Wellbutrin Sr] 150 mg PO BID 11/02/18 11/02/18 History Allergies Allergy/AdvReac Type Severity Reaction Status Date / Time No Known Allergies Allergy Verified 11/02/18 20:18 Physical Exam Vitals: Vital Signs Temp Pulse Resp BP Pulse Ox 11/04/18 18:46 98.5 F 80 18 144/73 95 11/04/18 15:00 97.9 F 102 H 16 146/86 97 11/04/18 07:15 98.2 F 82 16 156/77 94 L 11/04/18 01:18 98.5 F 79 18 152/84 96 Intake and Output 11/04/18 11/04/18 11/05/18 14:59 22:59 06:59 Intake Total 950 546 Balance 950 546 Intake: Intake, IV Titration 450 Amount Sodium Chloride 0.9% 1, 450 000 ml @ 75 mls/hr IV . [id number] [facility] Rx#:[id number] Oral 500 546 On physical examination, patient appears comfortable in no apparent distress. HEAD: Normocephalic, atraumatic. EYES: No scleral icterus. No conjunctival injection. MOUTH: No lesions, tongue midline. NECK: Trachea midline, no gross abnormalities. CHEST: Clear to auscultation with no wheezing or rhonchi appreciated. HEART: Regular rate and rhythm. ABDOMEN: Soft, obese. Bowel sounds are positive. No organomegaly. No guarding or rigidity. EXTREMITIES: No pedal edema. SKIN: No rashes, no jaundice. NEUROLOGIC: Alert and oriented x3. No focal deficits. Results CBC & Chem 7: 11/04/18 07:02 11/04/18 07:02 Labs: Abnormal Lab Results - Last 24 Hours (Table) 11/04/18 11/04/18 11/04/18 Range/Units 02:10 07:02 07:02 RBC 6.47 H (4.30-5.90) m/uL Hgb 17.9 H (13.0-17.5) gm/dL Hct 56.3 H (39.0-53.0) % RDW 17.9 H (11.5-15.5) % Sodium 134 L (137-145) mmol/L POC Glucose (mg/dL) 105 H (75-99) mg/dL 11/04/18 11/04/18 Range/Units 11:58 17:05 RBC (4.30-5.90) m/uL Hgb (13.0-17.5) gm/dL Hct (39.0-53.0) % RDW (11.5-15.5) % Sodium (137-145) mmol/L POC Glucose (mg/dL) 101 H 103 H (75-99) mg/dL Microbiology - Last 24 Hours (Table) 11/02/18 20:25 Blood Culture - Preliminary Blood No Growth after 48 hours Assessment and Plan (1) Nausea & vomiting Narrative/Plan: 43-year-old male with a medical history significant for insulin-dependent diabetes mellitus who is status post pancreatic and kidney transplant at [facility] in 2014 2 presented with multiple episodes of nausea and vomiting with associated abdominal pain. The patient reports that he was concerned about not taking his transplant medications and therefore presented for further evaluation. Currently he is reporting that he tolerated his diet and lunch today. Suspicion is for self limited viral or bacterial gastroenteritis with the patient currently reporting symptom resolution. Current Visit: Yes Status: Acute Code(s): R11.2 - NAUSEA WITH VOMITING, UNSPECIFIED SNOMED Code(s): 97944055 (2) Abdominal pain Current Visit: Yes Status: Acute Code(s): R10.9 - UNSPECIFIED ABDOMINAL PAIN SNOMED Code(s): 90328705 Plan: Supportive care Okay for diet as tolerated Continue antiemetics as needed Continue to monitor clinically Other medical management per primary team Okay for discharge from gastroenterology if tolerating diet and symptoms continue to be improved Thank you for allowing us to participate in the care of the patient we will continue to follow
[2018-11-05] MEDS: HYDROmorphone 0.5 MG/0.5 ML SYRINGE IVP PRN ×2 (00:19→06:41)
[2018-11-05 01:57] LABS: Glucose,Whole Blood 98 mg/dL (75-99)
[2018-11-05] MEDS: SODIUM CHLORIDE 0.9% 1,000 ML IV SCH ×2 (01:58→16:43)
[2018-11-05 07:21] LABS: Glucose,Whole Blood 86 mg/dL (75-99)
[2018-11-05] MEDS: INSULIN PUMP MEAL BOLUS 1 UNIT MISC MISCELLANE SCH ×3 (07:30→17:51)
[2018-11-05 07:54] VITALS: RESP 16
[2018-11-05] MEDS: ITRACONAZOLE ORAL SUSP 1,500 MG/150 ML BOTTLE PO SCH (08:45)
[2018-11-05] MEDS: MAGNESIUM OXIDE 400 MG TAB PO SCH ×2 (08:46→16:43)
[2018-11-05] MEDS: predniSONE 10 MG TAB PO SCH (08:46)
[2018-11-05] MEDS: ASPIRIN 325 MG TAB PO SCH (08:46)
[2018-11-05] MEDS: buPROPion SR 150 MG TABLET.ER PO SCH (08:46)
[2018-11-05] MEDS: TACROLIMUS 0.5 MG CAP PO SCH (08:46)
[2018-11-05 11:49] LABS: Glucose,Whole Blood 102 mg/dL (75-99)
[2018-11-05 13:57] VITALS: BP 142/70; PULSE 82; TEMP 98.6
[2018-11-05] MEDS: HYDROmorphone 1 MG/ML 1 ML SYRINGE IVP PRN (16:01)
--- NOTE | 2018-11-05 16:59 | P.DS ---
Providers Date of admission: 11/04/18 15:58 Expected date of discharge: 11/05/18 Attending physician: Veronica James Consults: 11/03/18 12:13 Consult Physician Routine Consulting Provider: Nelly Rey Consult Reason/Comments: Intractable nausea and vomiting Do you want consulting provider notified?: Yes Primary care physician: Stated None Hospital Course: Final diagnosis Intractable abdominal pain with nausea and vomiting Uncontrolled hypertension Diabetes mellitus type 1 Depression Chronic pain of the upper back and neck DVT prophylaxis Discharge disposition Patient is being discharged in a stable condition with guarded prognosis to home and will follow-up with primary care provider Dr. Howell upon discharge. Patient will also follow-up with pain management upon discharge as well. Total time taken 35 minutes. History of present illness This is a 43-year-old male who was recently admitted for abdominal pain with nausea and vomiting and was being closely monitored. GI was consulted and recommends no intervention at this time as his symptoms of nausea and vomiting had subsided when assessed. Patient currently denies any chest pain, shortness of breath, or palpitations. Patient denies any nausea or vomiting since yesterday and has been tolerating diet. Patient is been advancing diet slowly. Patient is currently on an insulin pump and blood sugars were being monitored closely and are stable. Patient continues to have chronic upper back and neck pain and states that he is been seeing somebody at of [facility] but would like somewhere closer as it is a far drive. Pain management referral Dr. Kramer was given and patient is to follow-up in the outpatient setting upon discharge. Currently patient's condition is stable with much improvement. Patient will be discharged home today. Guarded prognosis. On exam vital signs are stable. Temp is 98.6F, pulse is 82, respirations are 16, oxygen saturation is 98% on room air, blood pressure is 142/70. Cardio S1 and S2 are heard. Respiratory system shows clear to auscultation. Abdomen is soft, thin, and non-tender. Nervous system shows no focal deficits and gait is steady. Please refer to medication reconciliation sheet for a list of medications. Patient Condition at Discharge: Stable Plan - Discharge Summary Discharge Rx Participant: Yes New Discharge Prescriptions: Continue Magnesium Oxide [Mag-Ox] 400 mg PO TID Aspirin 325 mg PO DAILY predniSONE 10 mg PO DAILY Zolpidem Tartrate [Ambien] 5 mg PO HS Itraconazole Oral Susp [Sporanox Oral Susp] 20 mg PO BID Tacrolimus [Prograf] 0.5 mg PO DAILY Lisinopril [Zestril] 2.5 mg PO HS Insulin Aspart (For Pump) [NovoLOG (For Pump)] 0.01 unit SQ-PUMP CONTINUOUS buPROPion SR [Wellbutrin SR] 150 mg PO BID Discharge Medication List Aspirin 325 mg PO DAILY 02/17/15 [History] Magnesium Oxide [Mag-Ox] 400 mg PO TID 02/17/15 [History] predniSONE 10 mg PO DAILY 06/22/15 [History] Zolpidem Tartrate [Ambien] 5 mg PO HS 11/17/16 [History] Itraconazole Oral Susp [Sporanox Oral Susp] 20 mg PO BID 02/03/17 [History] Tacrolimus [Prograf] 0.5 mg PO DAILY 02/03/17 [History] Insulin Aspart (For Pump) [NovoLOG (For Pump)] 0.01 unit SQ-PUMP CONTINUOUS 11/02/18 [History] Lisinopril [Zestril] 2.5 mg PO HS 11/02/18 [History] buPROPion SR [Wellbutrin SR] 150 mg PO BID 11/02/18 [History] Follow up Appointment(s)/Referral(s): Pernell Howell MD [REFERRING] - 3 Days (Office Closed at time of discharge please call Sunday to set up a follow up appointment) Titi Kramer DO [Doctor of Osteopathic Medicine] - 1 Week Patient Instructions/Handouts: Acute Nausea and Vomiting (DC), Abdominal Pain (ED) Activity/Diet/Wound Care/Special Instructions: Activity Limited until follow-up Continue current diet and advance as tolerated Follow-up with primary care provider this week Follow-up with pain management referral this week Discharge Disposition: HOME SELF-CARE
[2018-11-05 17:19] LABS: Glucose,Whole Blood 135 mg/dL (75-99)
== END 2018-11-05 18:15 | disposition home or self-care (01) | DRG 392 ==
LOC: EC 19:25 → 4SSUR 20:31 → OBSVTOIN 11-04 15:58
PROVIDERS: ADMIT Internal Medicine; ATTEND Internal Medicine
DX: R10.84 Generalized abdominal pain (principal); Z94.83 Pancreas transplant status; Z94.0 Kidney transplant status; E10.319 Type 1 diabetes mellitus with unspecified diabetic retinopathy without macular edema; F32.9 Major depressive disorder, single episode, unspecified; F41.0 Panic disorder [episodic paroxysmal anxiety]; G89.29 Other chronic pain; I10 Essential (primary) hypertension; I25.10 Atherosclerotic heart disease of native coronary artery without angina pectoris; K21.9 Gastro-esophageal reflux disease without esophagitis; K58.9 Irritable bowel syndrome, unspecified; E07.9 Disorder of thyroid, unspecified; L40.9 Psoriasis, unspecified; M19.90 Unspecified osteoarthritis, unspecified site; M54.2 Cervicalgia; M54.6 Pain in thoracic spine; R11.2 Nausea with vomiting, unspecified; E66.9 Obesity, unspecified; Z68.22 Body mass index [BMI] 22.0-22.9, adult; Z79.4 Long term (current) use of insulin; Z79.82 Long term (current) use of aspirin; Z79.899 Other long term (current) drug therapy; Z79.52 Long term (current) use of systemic steroids; Z90.49 Acquired absence of other specified parts of digestive tract; Z96.41 Presence of insulin pump (external) (internal); Z87.891 Personal history of nicotine dependence; Z80.8 Family history of malignant neoplasm of other organs or systems; Z82.49 Family history of ischemic heart disease and other diseases of the circulatory system; Z83.79 Family history of other diseases of the digestive system
CPT/HCPCS: 36415; 80048; 80053; 81001; 82150; 83605; 83690; 85025; 87040; 96365; 96375; 99285

== ENCOUNTER 2019-03-29 16:42 | Emergency (ER) | payer MEDICARE, OTHER ==
[2019-03-29 16:48] VITALS: TEMP 97.5
--- NOTE | 2019-03-29 17:19 | ED ---
General Adult HPI - General Chief complaint: Chest Pain Stated complaint: Chest Pain Time Seen by Provider: 03/29/19 16:58 Source: patient Mode of arrival: wheelchair Limitations: no limitations - History of Present Illness Initial comments: Dictation was produced using Primo1D dictation software. please excuse any grammatical, word or spelling errors. Chief Complaint: 44-year-old male past medical history of kidney transplant, insulin-dependent diabetes mellitus presents with diarrhea and chest pain. History of Present Illness: 44-year-old male presents with multiple complaints. Patient states that he's been having diarrhea for the last 3-4 days. Patient has lost approximately 20 pounds in 4 days. He was barely able to keep anything down. Several difficulties managing her sugar. His glucose has not been under 200 despite has insulin pump. Patient takes multiple pain is present medications however pancreas and kidney transplant. Does report some pleuritic sharp chest pain to his left anterior chest for the last 12-24 hours. Does report local tenderness to palpation of the area. She The ROS documented in this emergency department record has been reviewed and confirmed by me. Those systems with pertinent positive or negative responses have been documented in the HPI. All other systems are other negative and/or noncontributory. PHYSICAL EXAM: General Impression: Alert and oriented x3, not in acute distress HEENT: Normocephalic atraumatic, extra-ocular movements intact, pupils equal and reactive to light bilaterally, dry mucous membranes Cardiovascular: Tachycardic Chest: Lungs clear to auscultation bilaterally, no rhonchi, no wheeze, no rales Abdomen: Bowel sounds present, abdomen soft, non-tender, non-distended, no organomegaly Musculoskeletal: Pulses present and equal in all extremities, no peripheral edema Motor: no focal deficits noted Neurological: CN II-XII grossly intact, no focal motor or sensory deficits noted Skin: Intact with no visualized rashes Psych: Normal affect and mood ED course: 44-year-old male with multiple comorbidities presents with diarrhea, dehydration and atypical chest pain. Vital signs upon arrival are within acceptable limits. Laboratory evaluation obtained. Leukocytosis 13.0 unclear significance. Hemoglobin is 22.3 with hematocrit of 69. Coag panel unremarkable. X-ray is nonacute. Venous blood gas negative. Metabolic panel shows hyponatremia 129, potassium 5.7, BUN of 42, creatinine 1.26, troponin 0.060, and Atrovent peptide of 2000. Patient treated with hyperkalemia cocktail. Didn't appear to be some peaked T waves on his EKG. Patient given hyperkalemia cocktail. Discussed patient case with Dr. pineda at [facility] down time was went except patient's care. Believe patient would benefit from transfer to and for [facility] with his transplant surgeons are. EKG interpretation: Ventricular rate 116, sinus tachycardia,. Interval 28, QRS 84, QTC 450. No AR prolongation, no QTC prolongation, no ST or T-wave changes noted. Compared to EKG from 11/02/2018. - Related Data Home Medications Medication Instructions Recorded Confirmed Aspirin 325 mg PO DAILY 02/17/15 03/29/19 Magnesium Oxide [Mag-Ox] 1,200 mg PO TID 02/17/15 03/29/19 predniSONE 5 mg PO DAILY 06/22/15 03/29/19 Itraconazole Oral Susp [Sporanox 20 mg PO BID 02/03/17 03/29/19 Oral Susp] Insulin Aspart (For Pump) [NovoLOG 0.01 unit SQ-PUMP CONTINUOUS 11/02/18 03/29/19 (For Pump)] Lisinopril [Zestril] 2.5 mg PO DAILY 11/02/18 03/29/19 buPROPion SR [Wellbutrin SR] 150 mg PO BID 11/02/18 03/29/19 Tacrolimus [Envarsus Xr] 3 mg PO DAILY 03/29/19 03/29/19 traZODone HCL 50 mg PO HS 03/29/19 03/29/19 Allergies Allergy/AdvReac Type Severity Reaction Status Date / Time No Known Allergies Allergy Verified 03/29/19 18:44 Review of Systems ROS Statement: Those systems with pertinent positive or pertinent negative responses have been documented in the HPI. ROS Other: All systems not noted in ROS Statement are negative. Past Medical History Past Medical History: Coronary Artery Disease (CAD), Diabetes Mellitus, Eye Disorder, GERD/Reflux, Hypertension, Osteoarthritis (OA), Renal Disease, Thyroid Disorder Additional Past Medical History / Comment(s): heart murmer, LEFT EYE DIABETIC RETINOPATHY, psoriasis, occ edema lower legs, hx ulcer, hemodialysis (Mon,Wed,Fri) not since 2014, hx anemia, renal failure, IBS. CMV virus. History of Any Multi-Drug Resistant Organisms: None Reported Past Surgical History: Cholecystectomy, Orthopedic Surgery Additional Past Surgical History / Comment(s): LT ARM FISTULA FOR DIAYLISIS, tendon surgery rt hand,. Kidney and Pancreas transplant - September 2014. PICC line insertion and removal. Past Anesthesia/Blood Transfusion Reactions: Motion Sickness Additional Past Anesthesia/Blood Transfusion Reaction / Comment(s): PANIC ATTACKS Past Psychological History: Anxiety Smoking Status: Former smoker Past Alcohol Use History: None Reported Past Drug Use History: Marijuana - Past Family History Father Family Medical History: Cancer, Liver Disease, Myocardial Infarction ([place]) Additional Family Medical History / Comment(s): AT AGE 50 Mother Family Medical History: Cancer, Thyroid Disorder Additional Family Medical History / Comment(s): THYROID CA. General Exam Limitations: no limitations Course Vital Signs 03/29/19 03/29/19 03/29/19 16:44 16:56 17:00 Temperature 97.5 F L Pulse Rate 134 H 121 H 116 H Pulse Rate [ Veneer Manufacturer ] Respiratory 24 18 18 Rate Blood Pressure 133/84 O2 Sat by Pulse 98 Oximetry 03/29/19 03/29/19 03/29/19 17:14 17:30 18:29 Temperature Pulse Rate 112 H 114 H Pulse Rate [ 118 H Veneer Manufacturer ] Respiratory 20 20 20 Rate Blood Pressure 146/92 147/97 O2 Sat by Pulse 99 96 Oximetry Medical Decision Making - Lab Data Result diagrams: 03/29/19 17:01 03/29/19 17:01 Lab Results 03/29/19 03/29/19 03/29/19 Range/Units 17:01 17:01 17:01 WBC 13.0 H (3.8-10.6) k/uL RBC 7.02 H (4.30-5.90) m/uL Hgb 22.3 H* D (13.0-17.5) gm/dL Hct 69.0 H* (39.0-53.0) % MCV 93.9 (80.0-100.0) fL MCH 30.4 (25.0-35.0) pg MCHC 32.4 (31.0-37.0) g/dL RDW 15.0 (11.5-15.5) % Plt Count 260 (150-450) k/uL Neutrophils % 81 % Lymphocytes % 7 % Monocytes % 7 % Eosinophils % 0 % Basophils % 3 % Neutrophils # 10.5 H (1.3-7.7) k/uL Lymphocytes # 0.9 L (1.0-4.8) k/uL Monocytes # 1.0 (0-1.0) k/uL Eosinophils # 0.0 (0-0.7) k/uL Basophils # 0.4 H (0-0.2) k/uL PT (9.0-12.0) sec INR (<1.2) APTT (22.0-30.0) sec VBG pH (7.31-7.41) VBG pCO2 (37-51) mmHg VBG HCO3 (24-28) mmol/L Sodium 129 L (137-145) mmol/L Potassium 5.7 H (3.5-5.1) mmol/L Chloride 91 L (98-107) mmol/L Carbon Dioxide 24 (22-30) mmol/L Anion Gap 14 mmol/L BUN 42 H (9-20) mg/dL Creatinine 1.26 H (0.66-1.25) mg/dL Est GFR (CKD-EPI)AfAm 81 (>60 ml/min/1.73 sqM) Est GFR (CKD-EPI)NonAf 70 (>60 ml/min/1.73 sqM) Glucose 159 H (74-99) mg/dL POC Glucose (mg/dL) (75-99) mg/dL POC Glu Electric Meter Installer Helper ID Plasma Lactic Acid Lazaro 2.0 (0.7-2.0) mmol/L Calcium 11.1 H (8.4-10.2) mg/dL Total Bilirubin 1.2 (0.2-1.3) mg/dL AST 44 (17-59) U/L ALT 28 (4-49) U/L Alkaline Phosphatase 73 (38-126) U/L Troponin I (0.000-0.034) ng/mL NT-Pro-B Natriuret Pep pg/mL Total Protein 8.0 (6.3-8.2) g/dL Albumin 4.6 (3.5-5.0) g/dL Lipase 131 (23-300) U/L Blood Type Blood Type Recheck Bld Type Recheck Status Antibody Screen Spec Expiration Date 03/29/19 03/29/19 03/29/19 Range/Units 17:01 17:01 17:26 WBC (3.8-10.6) k/uL RBC (4.30-5.90) m/uL Hgb (13.0-17.5) gm/dL Hct (39.0-53.0) % MCV (80.0-100.0) fL MCH (25.0-35.0) pg MCHC (31.0-37.0) g/dL RDW (11.5-15.5) % Plt Count (150-450) k/uL Neutrophils % % Lymphocytes % % Monocytes % % Eosinophils % % Basophils % % Neutrophils # (1.3-7.7) k/uL Lymphocytes # (1.0-4.8) k/uL Monocytes # (0-1.0) k/uL Eosinophils # (0-0.7) k/uL Basophils # (0-0.2) k/uL PT (9.0-12.0) sec INR (<1.2) APTT (22.0-30.0) sec VBG pH (7.31-7.41) VBG pCO2 (37-51) mmHg VBG HCO3 (24-28) mmol/L Sodium (137-145) mmol/L Potassium (3.5-5.1) mmol/L Chloride (98-107) mmol/L Carbon Dioxide (22-30) mmol/L Anion Gap mmol/L BUN (9-20) mg/dL Creatinine (0.66-1.25) mg/dL Est GFR (CKD-EPI)AfAm (>60 ml/min/1.73 sqM) Est GFR (CKD-EPI)NonAf (>60 ml/min/1.73 sqM) Glucose (74-99) mg/dL POC Glucose (mg/dL) 163 H (75-99) mg/dL POC Glu Electric Meter Installer Helper ID Salgat, Coleen Plasma Lactic Acid Lazaro (0.7-2.0) mmol/L Calcium (8.4-10.2) mg/dL Total Bilirubin (0.2-1.3) mg/dL AST (17-59) U/L ALT (4-49) U/L Alkaline Phosphatase (38-126) U/L Troponin I 0.060 H* (0.000-0.034) ng/mL NT-Pro-B Natriuret Pep 2190 pg/mL Total Protein (6.3-8.2) g/dL Albumin (3.5-5.0) g/dL Lipase (23-300) U/L Blood Type Blood Type Recheck Bld Type Recheck Status Antibody Screen Spec Expiration Date 03/29/19 03/29/19 03/29/19 Range/Units 17:30 17:31 18:13 WBC (3.8-10.6) k/uL RBC (4.30-5.90) m/uL Hgb (13.0-17.5) gm/dL Hct (39.0-53.0) % MCV (80.0-100.0) fL MCH (25.0-35.0) pg MCHC (31.0-37.0) g/dL RDW (11.5-15.5) % Plt Count (150-450) k/uL Neutrophils % % Lymphocytes % % Monocytes % % Eosinophils % % Basophils % % Neutrophils # (1.3-7.7) k/uL Lymphocytes # (1.0-4.8) k/uL Monocytes # (0-1.0) k/uL Eosinophils # (0-0.7) k/uL Basophils # (0-0.2) k/uL PT 10.3 (9.0-12.0) sec INR 1.0 (<1.2) APTT 21.9 L (22.0-30.0) sec VBG pH 7.41 (7.31-7.41) VBG pCO2 40 (37-51) mmHg VBG HCO3 25 (24-28) mmol/L Sodium (137-145) mmol/L Potassium (3.5-5.1) mmol/L Chloride (98-107) mmol/L Carbon Dioxide (22-30) mmol/L Anion Gap mmol/L BUN (9-20) mg/dL Creatinine (0.66-1.25) mg/dL Est GFR (CKD-EPI)AfAm (>60 ml/min/1.73 sqM) Est GFR (CKD-EPI)NonAf (>60 ml/min/1.73 sqM) Glucose (74-99) mg/dL POC Glucose (mg/dL) (75-99) mg/dL POC Glu Electric Meter Installer Helper ID Plasma Lactic Acid Lazaro (0.7-2.0) mmol/L Calcium (8.4-10.2) mg/dL Total Bilirubin (0.2-1.3) mg/dL AST (17-59) U/L ALT (4-49) U/L Alkaline Phosphatase (38-126) U/L Troponin I (0.000-0.034) ng/mL NT-Pro-B Natriuret Pep pg/mL Total Protein (6.3-8.2) g/dL Albumin (3.5-5.0) g/dL Lipase (23-300) U/L Blood Type AB Negative Blood Type Recheck AB Neg Bld Type Recheck Status No Antibody Screen NEGATIVE Spec Expiration Date 04/01/20192329 Disposition Clinical Impression: Dehydration Disposition: OTHER INSTITUTION NOT DEFINED Condition: Fair Referrals: Nonstaff,Physician [REFERRING] - 1-2 days Time of Disposition: 19:03 - Out of Hospital Transfer - Req. Specs Out of Hospital Transfer - Requested Specifics: Other Emergency Center ([facility])
[2019-03-29] MEDS ORDERED: SODIUM CHLORIDE 0.9% 1,000 ML IV ONE (17:25)
[2019-03-29 17:28] LABS: Glucose,Whole Blood 163 mg/dL (75-99)
[2019-03-29 17:36] LABS: Basophils # (A) 0.4 k/uL (0-0.2); Basophils % (A) 3 %; Eosinophils % (A) 0 %; Lymphocytes # (A) 0.9 k/uL (1.0-4.8); Lymphocytes % (A) 7 %; MCH 30.4 pg (25.0-35.0); MCHC 32.4 g/dL (31.0-37.0); MCV 93.9 fL (80.0-100.0); Mean Platelet Volume 7.5; Monocytes % (A) 7 %; Neutrophils # (A) 10.5 k/uL (1.3-7.7); Neutrophils % (A) 81 %; Platelet Count 260 k/uL (150-450)
[2019-03-29 17:41] LABS: VBG PH 7.41 (7.31-7.41)
[2019-03-29 17:44] LABS: Albumin 4.6 g/dL (3.5-5.0); Calcium 11.1 mg/dL (8.4-10.2); Potassium 5.7 mmol/L (3.5-5.1); Total Bilirubin 1.2 mg/dL (0.2-1.3)
[2019-03-29 17:47] LABS: HGB 22.3 gm/dL (13.0-17.5); RBC 7.02 m/uL (4.30-5.90)
--- NOTE | 2019-03-29 18:10 | XR ---
EXAMINATION TYPE: XR abdomen acute w cxr DATE OF EXAM: 03/29/2019 COMPARISON: 08/11/2015 HISTORY: Chest pain TECHNIQUE: 4 views. FINDINGS: Heart and mediastinum are normal. Lungs are clear. Diaphragm is normal bony thorax is intact. Bowel gas pattern is normal. There is no sign of intestinal obstruction or pneumoperitoneum. Fecal pattern is normal. There are clips from cholecystectomy. There are multiple surgical clips in the lower abdom en. : IMPRESSION: Nonacute abdomen. No active cardiopulmonary disease. Normal heart. Chest unchanged.
[2019-03-29 18:57] LABS: Partial Thromboplastin Time 21.9 sec (22.0-30.0); Prothrombin Time 10.3 sec (9.0-12.0)
[2019-03-29] MEDS ORDERED: INSULIN REGULAR 100 UNIT/ML VIAL IV ONE (19:01)
[2019-03-29] MEDS ORDERED: DEXTROSE 10 % IN WATER 250 ML IV ONE (19:01)
[2019-03-29] MEDS ORDERED: ALBUTEROL NEB (CONC) 2.5 MG/0.5 ML INHALATION ONE (19:01)
[2019-03-29] MEDS ORDERED: CALCIUM GLUCONATE 1 GM in SODIUM CHLORIDE 0.9% 100 ML IVPB ONE (19:01)
[2019-03-29] MEDS ORDERED: DEXTROSE 50% SYRINGE 50 ML IVP STA (19:21)
[2019-03-29 19:40] LABS: Glucose,Whole Blood 128 mg/dL (75-99)
[2019-03-29] MEDS ORDERED: LORazepam 2 MG/ML INJ IV STA (19:41)
[2019-03-29] MEDS ORDERED: MORPHINE SULFATE 4 MG/ML SYRINGE IV STA (19:41)
[2019-03-29 19:52] VITALS: PULSE 128
[2019-03-29 19:59] VITALS: BP 149/111; RESP 19
[2019-03-29 20:01] LABS: Glucose,Whole Blood 217 mg/dL (75-99)
== END 2019-03-29 20:07 | disposition short-term general hospital (02) ==
LOC: EC 16:42
DX: E86.0 Dehydration (principal); E87.1 Hypo-osmolality and hyponatremia; E87.5 Hyperkalemia; D72.829 Elevated white blood cell count, unspecified; R00.0 Tachycardia, unspecified; R07.89 Other chest pain; K58.0 Irritable bowel syndrome with diarrhea; I25.10 Atherosclerotic heart disease of native coronary artery without angina pectoris; E11.319 Type 2 diabetes mellitus with unspecified diabetic retinopathy without macular edema; I10 Essential (primary) hypertension; M19.90 Unspecified osteoarthritis, unspecified site; L40.9 Psoriasis, unspecified; F41.9 Anxiety disorder, unspecified; Z82.49 Family history of ischemic heart disease and other diseases of the circulatory system; Z87.891 Personal history of nicotine dependence; Z79.4 Long term (current) use of insulin; Z79.82 Long term (current) use of aspirin; Z79.52 Long term (current) use of systemic steroids; Z79.899 Other long term (current) drug therapy; Z94.0 Kidney transplant status; Z94.83 Pancreas transplant status; Z96.41 Presence of insulin pump (external) (internal); Z99.2 Dependence on renal dialysis; Z90.49 Acquired absence of other specified parts of digestive tract
CPT/HCPCS: 36415; 94640; 93005; 86900; 86901; 83880; 80053; 82803; 83605; 83690; 84484; 85025; 85610; 85730; 86850; 87040; 74022; 99285; 96365; 96375 ×3; 96361; J2060; J2270; J0610

== ENCOUNTER → 2019-11-21 | Outpatient (CLI) | payer MEDICARE, OTHER ==
[~2019-11-21] MED LIST: SODIUM CHLORIDE 0.9% 500 ML 500 ML in EMPTY BAG 1 BAG IV PRN
[2019-11-21 10:18] LABS: HCT 51.6 % (39.0-53.0); HGB 16.2 gm/dL (13.0-17.5); MCH 30.6 pg (25.0-35.0); MCHC 31.5 g/dL (31.0-37.0); MCV 97.2 fL (80.0-100.0); Mean Platelet Volume 6.8; Platelet Count 269 k/uL (150-450); RDW 14.9 % (11.5-15.5); WBC 7.5 k/uL (3.8-10.6)
[2019-11-21 10:28] VITALS: TEMP 97.7
[2019-11-21 10:47] VITALS: BP 118/63; PULSE 85; RESP 18
[2019-11-21 11:10] LABS: HCT 50.7 % (39.0-53.0); HGB 16.3 gm/dL (13.0-17.5); MCHC 32.1 g/dL (31.0-37.0); MCV 96.7 fL (80.0-100.0); Mean Platelet Volume 7.2; Platelet Count 255 k/uL (150-450); RBC 5.24 m/uL (4.30-5.90); RDW 14.9 % (11.5-15.5); WBC 6.8 k/uL (3.8-10.6)
== END | disposition home or self-care (01) ==
LOC: PROCWHC3 09:52
PROVIDERS: ATTEND Nurse Practitioner Gerontology
DX: D75.1 Secondary polycythemia (principal)
CPT/HCPCS: 36415; 85027; 99195

== ENCOUNTER → 2019-12-29 | Outpatient (CLI) | payer MEDICARE, OTHER ==
[2019-12-29 18:48] LABS: African American GFR (CKD) 65.6 (60.0-200.0); Albumin/Globulin Ratio 1.74 (1.60-3.17); Anion Gap 7.5 mmol/L (4.00-12.00); BUN/Creat Ratio 20.67 Ratio (12.00-20.00); Calcium 9.9 mg/dL (8.7-10.3); Carbon Dioxide 26.5 mmol/L (21.6-31.8); Globulin 2.3 g/dL (1.6-3.3); Non-African American GFR(CKD) 56.6 (60.0-200.0); Potassium 4.8 mmol/L (3.5-5.5); Total Bilirubin 0.2 mg/dL (0.2-1.2); Total Protein 6.3 g/dL (6.2-8.2)
== END | disposition home or self-care (01) ==
LOC: LABWHC1 10:54 → EDSTATUS 11:06
PROVIDERS: ATTEND Internal Medicine Nephrology
DX: Z48.22 Encounter for aftercare following kidney transplant (principal); Z94.0 Kidney transplant status
CPT/HCPCS: 36415; 80053; 80197; 87497

== ENCOUNTER → 2020-01-20 | Outpatient (CLI) | payer MEDICARE, OTHER ==
[2020-01-20 12:11] LABS: Basophils # (A) 0.1 k/uL (0-0.2); Basophils % (A) 1 %; Eosinophils # (A) 0.1 k/uL (0-0.7); Eosinophils % (A) 1 %; HCT 50.8 % (39.0-53.0); HGB 16.9 gm/dL (13.0-17.5); Lymphocytes # (A) 1.8 k/uL (1.0-4.8); Lymphocytes % (A) 24 %; MCH 32.1 pg (25.0-35.0); MCHC 33.2 g/dL (31.0-37.0); MCV 96.8 fL (80.0-100.0); Mean Platelet Volume 6.9; Monocytes # (A) 0.6 k/uL (0-1.0); Monocytes % (A) 8 %; Neutrophils # (A) 4.6 k/uL (1.3-7.7); Neutrophils % (A) 62 %; Platelet Count 273 k/uL (150-450); RBC 5.25 m/uL (4.30-5.90); RDW 14.4 % (11.5-15.5); WBC 7.4 k/uL (3.8-10.6)
[2020-01-20 12:25] LABS: Appearance,Urine Clear (Clear); Bilirubin,Urine Negative (Negative); Blood,Urine Negative (Negative); Color,Urine Light Yellow; Glucose,Urine (UA) Negative (Negative); Ketones,Urine Negative (Negative); Leukocyte Esterase,Urine Negative (Negative); Nitrite,Urine Negative (Negative); PH, Urine 5.5 (5.0-8.0); Protein,Urine Negative (Negative); Specific Gravity,Urine 1.017 (1.001-1.035); Urobilinogen,Urine <2.0 mg/dL (<2.0)
[2020-01-20 20:09] LABS: % Iron Saturation 16.95 (15.00-50.00); ALT 43 U/L (10-49); AST 34 U/L (14-35); Alkaline Phosphatase 70 U/L (41-126); Amylase 63 U/L (23-121); BUN/Creat Ratio 22.31 Ratio (12.00-20.00); Bilirubin, Conjugated <0.20 mg/dL (0.20-0.40); Calcium 10.1 mg/dL (8.7-10.3); Carbon Dioxide 26.5 mmol/L (21.6-31.8); Chloride 108 mmol/L (96-109); Chol/HDL Ratio 2.21; Cholesterol 186 mg/dL (0-200); Globulin 2.1 g/dL (1.6-3.3); Glucose 101 mg/dL (70-110); Iron 50 ug/dL (65-175); LDL Cholesterol,Calculated 64.4 mg/dL (0.0-131.0); Lipase 37 U/L (14-60); Magnesium 1.6 mg/dL (1.5-2.4); Non-African American GFR(CKD) 67.3 (60.0-200.0); Phosphorus 3.3 mg/dL (2.4-5.1); Potassium 4.8 mmol/L (3.5-5.5); Sodium 141 mmol/L (135-145); Total Bilirubin 0.2 mg/dL (0.2-1.2); Total Iron Binding Capacity 295 ug/dL (228-460); Total Protein 6.3 g/dL (6.2-8.2)
[2020-01-20 20:14] LABS: Ferritin 28.6 ng/mL (22.0-322.0)
[2020-01-20 20:22] LABS: Hemoglobin A1C 6.8 % (4.0-6.0)
[2020-01-21 00:07] LABS: Creatinine,Urine Random 88.2 mg/dL
[2020-01-21 00:25] LABS: C-Peptide 0.93 ng/mL (0.81-3.85)
[2020-01-21 01:18] LABS: Total Protein,Urine Random 8.4 mg/dL (0.0-13.5)
== END | disposition home or self-care (01) ==
LOC: LABWHC1 10:47
PROVIDERS: ATTEND Internal Medicine Nephrology
DX: E55.9 Vitamin D deficiency, unspecified (principal); D63.1 Anemia in chronic kidney disease; E11.22 Type 2 diabetes mellitus with diabetic chronic kidney disease; N18.9 Chronic kidney disease, unspecified; Z94.0 Kidney transplant status
CPT/HCPCS: 36415; 80048; 80061; 80076; 80197; 81003; 82150; 82306; 82570; 82728; 83036; 83540; 83550; 83690; 83735; 83970; 84100; 84156; 84681; 85025

== ENCOUNTER → 2020-03-09 | Outpatient (CLI) | payer MEDICARE, OTHER ==
--- NOTE | 2020-03-09 16:02 | US ---
EXAMINATION TYPE: US renal transplant w dop DATE OF EXAM: 03/09/2020 COMPARISON: CT 06/22/2015 CLINICAL HISTORY: Z94.0 KIDNEY TRANSPLANT. Kidney transplant 2014 EXAM PERFORMED: Grayscale on tejon kidneys and Doppler duplex and Grayscale imaging of the transplan zhou kidney. EXAM MEASUREMENTS: [place] Right Kidney: 5.7 X 3.5 X 3.0 cm [place] Left Kidney: 6.5 x 3.0 x 3.9 cm Transplant Kidney: 12.0 x 4.8 x 4.4 cm Location of transplanted kidney: Left pelvis ANATOMY: [place] Right Kidney: Measuring small, loss of corticomedullary differentiation [place] Left Kidney: Measuring small, loss of corticomedullary differentiation Transplant Kidney: Mild hydronephrosis. No cystic or solid masses visualized Bladder: wnl Bilateral Jets seen: No jets visualized IMPRESSION: The transplanted kidney demonstrates mild hydronephrosis. [place] kidneys are diminutive in size. No j ets are visualized.
== END | disposition home or self-care (01) ==
LOC: RADUSWWP 13:27
PROVIDERS: ATTEND Internal Medicine Nephrology
DX: N13.30 Unspecified hydronephrosis (principal); Z94.0 Kidney transplant status
CPT/HCPCS: 76776

== ENCOUNTER → 2020-03-17 | Outpatient (CLI) | payer MEDICARE, OTHER ==
[2020-03-17 10:31] LABS: Appearance,Urine Clear (Clear); Bacteria,Urine Rare /hpf; Bilirubin,Urine Negative (Negative); Blood,Urine Negative (Negative); Color,Urine Yellow; Glucose,Urine (UA) Negative (Negative); Ketones,Urine Negative (Negative); Leukocyte Esterase,Urine Trace (Negative); Mucus,Urine Rare /hpf; Nitrite,Urine Negative (Negative); Protein,Urine Negative (Negative); RBC,Urine 1 /hpf (0-5); Urobilinogen,Urine <2.0 mg/dL (<2.0); WBC,Urine 5 /hpf (0-5)
[2020-03-17 15:07] LABS: Basophils # (A) 0.04 X 10*3/uL (0.00-0.10); Basophils % (A) 0.5 %; Eosinophils % (A) 1.2 %; HCT 40.3 % (39.6-50.0); HGB 13.5 g/dL (13.0-17.0); Lymphocytes # (A) 2.84 X 10*3/uL (0.90-5.00); Lymphocytes % (A) 34.1 %; MCH 31.8 pg (27.0-32.0); MCHC 33.5 g/dL (32.0-37.0); Mean Platelet Volume 10.8 fL (9.5-12.2); Monocytes # (A) 0.94 X 10*3/uL (0.20-1.00); Monocytes % (A) 11.3 %; Neutrophils # (A) 4.38 X 10*3/uL (1.80-7.70); Neutrophils % (A) 52.4 %; Platelet Count 292 X 10*3/uL (140-440); RBC 4.24 X 10*6/uL (4.40-5.60); RDW 13.9 % (11.5-14.5); WBC 8.34 X 10*3/uL (4.50-10.00)
[2020-03-17 19:26] LABS: Hemoglobin A1C 7.3 % (4.0-6.0)
[2020-03-17 21:59] LABS: INR 0.94 (0.90-1.11); Partial Thromboplastin Time 25.8 sec (23.5-31.0); Prothrombin Time 10.3 sec (9.9-11.9)
[2020-03-17 22:29] LABS: Total Protein,Urine Random 12.2 mg/dL (0.0-13.5)
[2020-03-17 23:32] LABS: % Iron Saturation 30.94 (15.00-50.00); ALT 27 U/L (10-49); AST 35 U/L (14-35); African American GFR (CKD) 60.3 (60.0-200.0); Albumin/Globulin Ratio 2.22 (1.60-3.17); Alkaline Phosphatase 54 U/L (41-126); Amylase 46 U/L (23-121); Bilirubin, Conjugated <0.20 mg/dL (0.20-0.40); Calcium 9.4 mg/dL (8.7-10.3); Carbon Dioxide 28.9 mmol/L (21.6-31.8); Chloride 108 mmol/L (96-109); Chol/HDL Ratio 2.46; Cholesterol 165 mg/dL (0-200); Creatinine,Urine Random 157.4 mg/dL; Ferritin 115.7 ng/mL (22.0-322.0); Globulin 1.8 g/dL (1.6-3.3); Glucose 142 mg/dL (70-110); Iron 86 ug/dL (65-175); LDL Cholesterol,Calculated 66.4 mg/dL (0.0-131.0); Lipase 29 U/L (14-60); Magnesium 1.5 mg/dL (1.5-2.4); Phosphorus 3.3 mg/dL (2.4-5.1); Potassium 4.3 mmol/L (3.5-5.5); Sodium 142 mmol/L (135-145); Total Bilirubin 0.3 mg/dL (0.2-1.2); Total Iron Binding Capacity 278 ug/dL (228-460); Total Protein 5.8 g/dL (6.2-8.2); Uric Acid 5.4 mg/dL (3.7-8.7)
[2020-03-18 00:04] LABS: C-Peptide 0.64 ng/mL (0.81-3.85)
[2020-03-18 13:19] LABS: BK Virus DNA PCR, Qualitative Not detected (Not detected); BKV DNA (PCR), Quant <125 Copies/mL (<125); LOG BKV Copies/mL <2.10 (<2.10)
[2020-03-18 14:06] LABS: Tacrolimus (FK506) 10.2 ng/mL (5.0-20.0)
== END | disposition home or self-care (01) ==
LOC: LABWHC1 09:27
PROVIDERS: ATTEND Internal Medicine Nephrology
DX: Z48.22 Encounter for aftercare following kidney transplant (principal); Z94.0 Kidney transplant status; Z79.01 Long term (current) use of anticoagulants
CPT/HCPCS: 36415; 80048; 80061; 80076; 80197; 81001; 82150; 82306; 82570; 82728; 83036; 83540; 83550; 83690; 83735; 83970; 84100; 84156; 84550; 84681; 85025; 85610; 85730

== ENCOUNTER → 2020-08-27 | Outpatient (CLI) | payer MEDICARE, OTHER | END | disposition home or self-care (01) | LOC: LABWHC1 08:26 | PROVIDERS: ATTEND Internal Medicine Nephrology | DX: Z94.0 Kidney transplant status (principal) | CPT/HCPCS: 36415 ==

== ENCOUNTER → 2020-09-04 | Outpatient (CLI) | payer MEDICARE, OTHER ==
[2020-09-04 12:09] LABS: INR 0.9 (<1.2); Partial Thromboplastin Time 22.3 sec (22.0-30.0); Prothrombin Time 9.9 sec (9.0-12.0)
== END | disposition home or self-care (01) ==
LOC: LABWHC1 11:00
PROVIDERS: ATTEND Internal Medicine Nephrology
DX: N32.89 Other specified disorders of bladder (principal); Z79.899 Other long term (current) drug therapy
CPT/HCPCS: 36415; 85610; 85730

== ENCOUNTER 2020-09-08 08:21 | Observation (INO) | payer MEDICARE, OTHER ==
[2020-09-08 08:42] LABS: Glucose,Whole Blood 277 mg/dL (75-99)
[2020-09-08] MEDS ORDERED: MORPHINE SULFATE 4 MG/ML SYRINGE IV STA (08:51)
[2020-09-08] MEDS ORDERED: SODIUM CHLORIDE 0.9% 1,000 ML IV STA ×2 (08:51→12:29)
[2020-09-08] MEDS ORDERED: ONDANSETRON 4 MG/2 ML VIAL IVP STA (08:51)
--- NOTE | 2020-09-08 08:55 | ED ---
General Adult HPI - General Chief complaint: Abdominal Pain Stated complaint: N/V/D, transplant recipient Time Seen by Provider: 09/08/20 08:34 Source: patient Mode of arrival: wheelchair Limitations: no limitations - History of Present Illness Initial comments: Dictation was produced using [employer] dictation software. please excuse any grammatical, word or spelling errors. Chief Complaint: 45-year-old male past medical history of kidney transplant presents with abdominal pain, nausea and vomiting. History of Present Illness: 45-year-old male with past medical history of kidney transplant and 2014 presents to the emergency department for abdominal pain, nausea vomiting. Patient needed kidney transplant due to kidney injury sec ondary to long history of diabetes. Patient states he woke up this morning with retching of bilious material. States it is diffuse abdominal pain. Patient significant other is at the bedside reports that he is due for a kidney biopsy. Patient denies any fever. He does take immunosuppressant agents. Reports that he has diffuse tenderness that is 10 out of 10 in severity. The ROS documented in this emergency department record has been reviewed and confirmed by me. Those systems with pertinent positive or negative responses have been documented in the HPI. All other systems are other negative and/or noncontributory. PHYSICAL EXAM: General Impression: Alert and oriented x3, acute distress secondary to pain HEENT: Normocephalic atraumatic, extra-ocular movements intact, pupils equal and reactive to light bilaterally, mucous membranes moist. Cardiovascular: Heart regular rate and rhythm Chest: Able to complete full sentences, no retractions, no tachypnea Abdomen: abdomen soft, non-tender, non-distended, no organomegaly Musculoskeletal: Pulses present and equal in all extremities, no peripheral edema Motor: no focal deficits noted Neurological: CN II-XII grossly intact, no focal motor or sensory deficits noted Skin: Intact with no visualized rashes Psych: Normal affect and mood ED course: 45-year-old male presents to the emergency department for acute onset of severe abdominal pain. Vital signs upon arrival shows blood pressure of 203/90, pulse vital signs within acceptable limits. Laboratory evaluation obtained. Stress leukocytosis of 14.5. Coag panel is unremarkable. Metabolic panel shows renal markers within acceptable limits. Glucose 295. Magnesium 1.1. Urinalysis shows 4+ glucose and 2+ ketones. Patient reevaluated at bedside still having what he reports is severe symptoms. CT of the abdomen and pelvis obtained showing enteritis. Chest x-ray shows nonspecific nodule. Given patient's history of kidney transplant currently on immunosuppressants believe patient would benefit from short observation admission for IV fluids and continue medical monitoring. Patient is agreeable with plan. Patient admitted to [facility]. EKG interpretation: Ventricular rate 70, normal sinus rhythm,. Interval 126, care is 92, QTC 473. No NH prolongation, no QTC prolongation, no ST or T-wave changes noted. EKG compared to 2019 showing no changes. Overall, this EKG is unremarkable - Related Data Home Medications Medication Instructions Recorded Confirmed Magnesium Oxide [Mag-Ox] 1,200 mg PO DIRECTED 02/17/15 09/08/20 Insulin Aspart (For Pump) [NovoLOG 0.01 unit SQ-PUMP CONTINUOUS 11/02/18 09/08/20 (For Pump)] Tacrolimus [Envarsus Xr] 1 mg PO DIRECTED 03/29/19 09/08/20 traZODone HCL 50 mg PO HS 03/29/19 09/08/20 Aspirin EC [Ecotrin] 325 mg PO DIRECTED 09/08/20 09/08/20 Itraconazole [Sporanox] 200 mg PO BID 09/08/20 09/08/20 Metoprolol Tartrate [Lopressor] 50 mg PO BID 09/08/20 09/08/20 Omeprazole Magnesium [PriLOSEC] 20 mg PO DAILY 09/08/20 09/08/20 Tacrolimus [Envarsus Xr] 2.25 mg PO DIRECTED 09/08/20 09/08/20 buPROPion HCL [buPROPion HCL ER] 200 mg PO QAM 09/08/20 09/08/20 hydrOXYzine HCL [Atarax] 25 mg PO BID PRN 09/08/20 09/08/20 lisinopriL [Zestril] 5 mg PO DAILY 09/08/20 09/08/20 predniSONE 10 mg PO DAILY 09/08/20 09/08/20 predniSONE 10 mg PO DAILY 09/08/20 09/08/20 Allergies Allergy/AdvReac Type Severity Reaction Status Date / Time No Known Allergies Allergy Verified 09/08/20 11:32 Review of Systems ROS Statement: Those systems with pertinent positive or pertinent negative responses have been documented in the HPI. ROS Other: All systems not noted in ROS Statement are negative. Past Medical History Past Medical History: Coronary Artery Disease (CAD), Diabetes Mellitus, Eye Disorder, GERD/Reflux, Hypertension, Osteoarthritis (OA), Renal Disease, Thyroid Disorder Additional Past Medical History / Comment(s): heart murmer, LEFT EYE DIABETIC RETINOPATHY, psoriasis, occ edema lower legs, hx ulcer, hemodialysis (Mon,Wed,Fri) not since 2014, hx anemia, renal failure, IBS. CMV virus. History of Any Multi-Drug Resistant Organisms: None Reported Past Surgical History: Cholecystectomy, Orthopedic Surgery Additional Past Surgical History / Comment(s): LT ARM FISTULA FOR DIAYLISIS, tendon surgery rt hand,. Kidney and Pancreas transplant - September 2014. PICC line insertion and removal. Past Anesthesia/Blood Transfusion Reactions: Motion Sickness Additional Past Anesthesia/Blood Transfusion Reaction / Comment(s): PANIC ATTACKS Past Psychological History: Anxiety, Depression Smoking Status: Former smoker Past Alcohol Use History: None Reported Past Drug Use History: Marijuana - Past Family History Father Family Medical History: Cancer, Liver Disease, Myocardial Infarction ([place]) Additional Family Medical History / Comment(s): AT AGE 50 Mother Family Medical History: Cancer, Thyroid Disorder Additional Family Medical History / Comment(s): THYROID CA. General Exam Limitations: no limitations Course Vital Signs 09/08/20 09/08/20 09/08/20 08:27 11:12 11:29 Temperature 97.6 F 98.2 F Pulse Rate 71 75 73 Respiratory 16 18 16 Rate Blood Pressure 203/98 176/85 171/85 O2 Sat by Pulse 98 100 97 Oximetry Medical Decision Making - Lab Data Result diagrams: 09/08/20 08:50 09/08/20 08:50 Lab Results 09/08/20 09/08/20 09/08/20 Range/Units 08:40 08:50 08:50 WBC 14.5 H (3.8-10.6) k/uL RBC 5.09 (4.30-5.90) m/uL Hgb 15.7 (13.0-17.5) gm/dL Hct 48.4 (39.0-53.0) % MCV 95.1 (80.0-100.0) fL MCH 30.9 (25.0-35.0) pg MCHC 32.5 (31.0-37.0) g/dL RDW 15.0 (11.5-15.5) % Plt Count 262 (150-450) k/uL MPV 7.2 Neutrophils % 90 % Lymphocytes % 5 % Monocytes % 4 % Eosinophils % 0 % Basophils % 0 % Neutrophils # 13.0 H (1.3-7.7) k/uL Lymphocytes # 0.7 L (1.0-4.8) k/uL Monocytes # 0.6 (0-1.0) k/uL Eosinophils # 0.0 (0-0.7) k/uL Basophils # 0.0 (0-0.2) k/uL PT 10.4 (9.0-12.0) sec INR 1.0 (<1.2) APTT 21.5 L (22.0-30.0) sec Sodium (137-145) mmol/L Potassium (3.5-5.1) mmol/L Chloride (98-107) mmol/L Carbon Dioxide (22-30) mmol/L Anion Gap mmol/L BUN (9-20) mg/dL Creatinine (0.66-1.25) mg/dL Est GFR (CKD-EPI)AfAm (>60 ml/min/1.73 sqM) Est GFR (CKD-EPI)NonAf (>60 ml/min/1.73 sqM) Glucose (74-99) mg/dL POC Glucose (mg/dL) 277 H (75-99) mg/dL POC Glu Sales Host ID Janneth Daly Plasma Lactic Acid Lazaro (0.7-2.0) mmol/L Calcium (8.4-10.2) mg/dL Magnesium (1.6-2.3) mg/dL Total Bilirubin (0.2-1.3) mg/dL AST (17-59) U/L ALT (4-49) U/L Alkaline Phosphatase (38-126) U/L Total Protein (6.3-8.2) g/dL Albumin (3.5-5.0) g/dL Lipase (23-300) U/L Urine Color Urine Appearance (Clear) Urine pH (5.0-8.0) Ur Specific Metter (1.001-1.035) Urine Protein (Negative) Urine Glucose (UA) (Negative) Urine Ketones (Negative) Urine Blood (Negative) Urine Nitrite (Negative) Urine Bilirubin (Negative) Urine Urobilinogen (<2.0) mg/dL Ur Leukocyte Esterase (Negative) 09/08/20 09/08/20 09/08/20 Range/Units 08:50 08:50 11:52 WBC (3.8-10.6) k/uL RBC (4.30-5.90) m/uL Hgb (13.0-17.5) gm/dL Hct (39.0-53.0) % MCV (80.0-100.0) fL MCH (25.0-35.0) pg MCHC (31.0-37.0) g/dL RDW (11.5-15.5) % Plt Count (150-450) k/uL MPV Neutrophils % % Lymphocytes % % Monocytes % % Eosinophils % % Basophils % % Neutrophils # (1.3-7.7) k/uL Lymphocytes # (1.0-4.8) k/uL Monocytes # (0-1.0) k/uL Eosinophils # (0-0.7) k/uL Basophils # (0-0.2) k/uL PT (9.0-12.0) sec INR (<1.2) APTT (22.0-30.0) sec Sodium 134 L (137-145) mmol/L Potassium 4.2 (3.5-5.1) mmol/L Chloride 100 (98-107) mmol/L Carbon Dioxide 25 (22-30) mmol/L Anion Gap 9 mmol/L BUN 25 H (9-20) mg/dL Creatinine 1.30 H (0.66-1.25) mg/dL Est GFR (CKD-EPI)AfAm 78 (>60 ml/min/1.73 sqM) Est GFR (CKD-EPI)NonAf 67 (>60 ml/min/1.73 sqM) Glucose 295 H (74-99) mg/dL POC Glucose (mg/dL) (75-99) mg/dL POC Glu Sales Host ID Plasma Lactic Acid Lazaro 1.2 (0.7-2.0) mmol/L Calcium 10.1 (8.4-10.2) mg/dL Magnesium 1.1 L (1.6-2.3) mg/dL Total Bilirubin 0.7 (0.2-1.3) mg/dL AST 32 (17-59) U/L ALT 26 (4-49) U/L Alkaline Phosphatase 63 (38-126) U/L Total Protein 6.7 (6.3-8.2) g/dL Albumin 4.3 (3.5-5.0) g/dL Lipase 40 (23-300) U/L Urine Color Light Yellow Urine Appearance Clear (Clear) Urine pH 8.0 (5.0-8.0) Ur Specific Metter 1.014 (1.001-1.035) Urine Protein Trace H (Negative) Urine Glucose (UA) 4+ H (Negative) Urine Ketones 2+ H (Negative) Urine Blood Negative (Negative) Urine Nitrite Negative (Negative) Urine Bilirubin Negative (Negative) Urine Urobilinogen <2.0 (<2.0) mg/dL Ur Leukocyte Esterase Negative (Negative) Disposition Clinical Impression: Dehydration, Abdominal pain Disposition: ADMITTED IP TO THIS [facility] Condition: Fair Referrals: None,Stated [Primary Care Provider] - 1-2 days
[2020-09-08 09:15] LABS: Basophils % (A) 0 %; Eosinophils % (A) 0 %; HCT 48.4 % (39.0-53.0); HGB 15.7 gm/dL (13.0-17.5); Lymphocytes # (A) 0.7 k/uL (1.0-4.8); Lymphocytes % (A) 5 %; MCH 30.9 pg (25.0-35.0); MCHC 32.5 g/dL (31.0-37.0); MCV 95.1 fL (80.0-100.0); Mean Platelet Volume 7.2; Monocytes # (A) 0.6 k/uL (0-1.0); Monocytes % (A) 4 %; Neutrophils % (A) 90 %; Platelet Count 262 k/uL (150-450); RBC 5.09 m/uL (4.30-5.90); WBC 14.5 k/uL (3.8-10.6)
[2020-09-08 09:21] LABS: Albumin 4.3 g/dL (3.5-5.0); Calcium 10.1 mg/dL (8.4-10.2); Magnesium 1.1 mg/dL (1.6-2.3); Potassium 4.2 mmol/L (3.5-5.1); Total Bilirubin 0.7 mg/dL (0.2-1.3); Total Protein 6.7 g/dL (6.3-8.2)
[2020-09-08 09:38] LABS: Prothrombin Time 10.4 sec (9.0-12.0)
[2020-09-08 09:43] LABS: Partial Thromboplastin Time 21.5 sec (22.0-30.0)
[2020-09-08] MEDS ORDERED: METOCLOPRAMIDE 5 MG/ML 2 ML VIAL IVP STA (10:03)
--- NOTE | 2020-09-08 10:04 | XR ---
EXAMINATION TYPE: XR chest 1V portable DATE OF EXAM: 09/08/2020 COMPARISON: 08/11/2015 INDICATION: Nausea and vomiting TECHNIQUE: Single frontal view of the chest is obtained. FINDINGS: The heart size is normal. The pulmonary vasculature is normal. There is a new nodule measuring 2.1 cm in craniocaudal dimension within the left lower lung field. Ad ditional workup with CT is recommended. IMPRESSION: 1. Left lower lung field nodule. CT recommended for additional evaluation.
--- NOTE | 2020-09-08 10:07 | CT ---
EXAMINATION TYPE: CT abdomen pelvis wo con DATE OF EXAM: 09/08/2020 COMPARISON: 11/02/2018 HISTORY: Generalized pain with N/V/D. CT DLP: 478.5 mGycm Examination of the solid and hollow viscera is limited given the lack of contrast. FINDINGS: LUNG BASES: No evidence for nodule. No evidence for infiltrate. LIVER/GB: The gallbladder is surgically absent. No space-occupying hepatic lesion. PANCREAS: No pancreatic mass identified. No inflammatory process seen. SPLEEN: No evidence for splenomegaly. No intrasplenic lesions seen. ADRENALS: No adrenal nodules identified. No evidence for thickening. KIDNEYS: Renal atrophic change of the renal vascular calcifications. Left iliac fossa renal transplan t noted to be in place. No evidence for renal mass. No nephrolithiasis. No hydronephrosis. BOWEL: Small bowel wall thickening noted may reflect enteritis. Appendix is not clearly visualized. C olon appears unremarkable. No free air or abscess. Lymph nodes: No evidence for adenopathy greater th an 1 cm. Abdominal aorta: Atheromatous changes seen. No evidence for aneurysm. Genital organs: No significant abnormality. Other: No significant abnormality. IMPRESSION: 1. Correlate for small bowel enteritis. 2. Renal atrophic and renal vascular changes. Renal transplant left iliac fossa appears grossly unrem arkable.
[2020-09-08] MEDS: MAGNESIUM SULFATE-D5W PMX 1 GM in DEXTROSE/WATER 1 100ML.BAG IVPB SCH ×2 (11:13→12:29)
[2020-09-08 12:03] LABS: Appearance,Urine Clear (Clear); Bilirubin,Urine Negative (Negative); Blood,Urine Negative (Negative); Color,Urine Light Yellow; Glucose,Urine (UA) 4+ (Negative); Leukocyte Esterase,Urine Negative (Negative); Nitrite,Urine Negative (Negative); Protein,Urine Trace (Negative); Specific Gravity,Urine 1.014 (1.001-1.035); Urobilinogen,Urine <2.0 mg/dL (<2.0)
[2020-09-08 12:24] LABS: Ketones,Urine 2+ (Negative)
[2020-09-08] MEDS ORDERED: NALOXONE 0.4 MG/ML 1 ML VIAL IV PRN ×2 (12:31→12:32)
[2020-09-08] MEDS ORDERED: ACETAMINOPHEN TAB 325 MG TAB PO PRN ×2 (12:31→12:32)
[2020-09-08] MEDS ORDERED: PROCHLORPERAZINE 5 MG TAB PO PRN (12:31)
[2020-09-08] MEDS ORDERED: NON FORMULARY DRUG (Aspirin Ec 325 MG Tablet.Dr) PO SCH (12:45)
[2020-09-08] MEDS ORDERED: SODIUM CHLORIDE 0.9% 1,000 ML IV SCH (12:45)
[2020-09-08] MEDS ORDERED: Insulin Aspart (For Pump) 100 UNIT/ML VIAL SQ-PUMP SCH (12:45)
[2020-09-08 12:51] LABS: Glucose,Whole Blood 253 mg/dL (75-99)
[2020-09-08] MEDS: ONDANSETRON 4 MG/2 ML VIAL IVP PRN ×2 (13:52→20:58)
[2020-09-08] MEDS: MORPHINE SULFATE 4 MG/ML SYRINGE IV PRN ×2 (13:52→21:07)
[2020-09-08] MEDS: SODIUM CHLORIDE 0.9% 1,000 ML IV SCH ×2 (13:53→20:33)
[2020-09-08 15:09] LABS: Creatinine,Urine Random 33.1 mg/dL; Protein/Creatinine Ratio,Urine 1.118
[2020-09-08] MEDS: HEPARIN SODIUM,PORCINE/PF 5,000 UNIT/0.5 ML SYRINGE SQ SCH (15:37)
--- NOTE | 2020-09-08 16:05 | P.HPIM ---
History of Present Illness H&P Date: 09/08/20 Chief Complaint: nausea, vomiting, abd pain, diarrhea 45 year old man with ESRD s/p DDKT one year ago on chronic immunosuppression, HTN/DM/HLD, GERD, Depression presented with nausea, vomiting, diarrhea. Patient says that starting one week ago, he noticed that his acid reflux symptoms were becoming unbearable, and had started to consume increasing amounts of baking soda mixed with water. In the last 2 days, he started to develop severe nausea, vomiting, and diarrhea with abdominal cramping. He says that over the last day, he has vomited every 10 minutes for several hours leading up to ER visit. Every time he had an emesis episode, he lost control of his bowel as well. The vomitus was mostly bilious, though he has a history of PUD and was concerned about some red flecks in the vomitus. He tried to stay hydrated, but started to become concerned with the amount of vomitus and diarrhea mixed with developing headache which he relates to dehydration, prompting his concern and admission. Notably, he was told recently that he would require donor kidney biopsy for worsening creatinine up to 2.1 from baseline of 1.2. Today, he is HDS, afebrile. However, he is having trouble tolerating PO, and though his pain has improved with morphine, and nausea improved but not resolved with zofran. He still has not tolerated PO intake. Cr today is better than previous values at 1.3, down from 1.9 a few weeks ago. WBC is elevated at 14.5. UA is + for ketones and glucose. CT A/P demonstrates evidence of enteritis. Initial plan is to admit patient for IVF hydration and nephrology consult. Review of Systems All Systems reviewed and pertinent positives and negatives noted in HPI, all other symptoms are negative Past Medical History Past Medical History: Coronary Artery Disease (CAD), Diabetes Mellitus, Eye Disorder, GERD/Reflux, Hypertension, Osteoarthritis (OA), Renal Disease, Thyroid Disorder Additional Past Medical History / Comment(s): heart murmer, LEFT EYE DIABETIC RETINOPATHY, psoriasis, occ edema lower legs, hx ulcer, hemodialysis (Mon,Wed,Fri) not since 2014, hx anemia, renal failure, IBS. CMV virus. History of Any Multi-Drug Resistant Organisms: None Reported Past Surgical History: Cholecystectomy, Orthopedic Surgery Additional Past Surgical History / Comment(s): LT ARM FISTULA FOR DIAYLISIS, tendon surgery rt hand,. Kidney and Pancreas transplant - September 2014. PICC line insertion and removal. Past Anesthesia/Blood Transfusion Reactions: Motion Sickness Additional Past Anesthesia/Blood Transfusion Reaction / Comment(s): PANIC ATTACKS Past Psychological History: Anxiety, Depression Smoking Status: Former smoker Past Alcohol Use History: None Reported Past Drug Use History: Marijuana - Past Family History Father Family Medical History: Cancer, Liver Disease, Myocardial Infarction ([place]) Additional Family Medical History / Comment(s): AT AGE 50 Mother Family Medical History: Cancer, Thyroid Disorder Additional Family Medical History / Comment(s): THYROID CA. Medications and Allergies Home Medications Medication Instructions Recorded Confirmed Type Magnesium Oxide [Mag-Ox] 1,200 mg PO DIRECTED 02/17/15 09/08/20 History Insulin Aspart (For Pump) [NovoLOG 0.01 unit SQ-PUMP CONTINUOUS 11/02/18 09/08/20 History (For Pump)] Tacrolimus [Envarsus Xr] 1 mg PO DIRECTED 03/29/19 09/08/20 History traZODone HCL 50 mg PO HS 03/29/19 09/08/20 History Aspirin EC [Ecotrin] 325 mg PO DIRECTED 09/08/20 09/08/20 History Itraconazole [Sporanox] 200 mg PO BID 09/08/20 09/08/20 History Metoprolol Tartrate [Lopressor] 50 mg PO BID 09/08/20 09/08/20 History Omeprazole Magnesium [PriLOSEC] 20 mg PO DAILY 09/08/20 09/08/20 History Tacrolimus [Envarsus Xr] 2.25 mg PO DIRECTED 09/08/20 09/08/20 History buPROPion HCL [buPROPion HCL ER] 200 mg PO QAM 09/08/20 09/08/20 History hydrOXYzine HCL [Atarax] 25 mg PO BID PRN 09/08/20 09/08/20 History lisinopriL [Zestril] 5 mg PO DAILY 09/08/20 09/08/20 History predniSONE 10 mg PO DAILY 09/08/20 09/08/20 History predniSONE 10 mg PO DAILY 09/08/20 09/08/20 History Allergies Allergy/AdvReac Type Severity Reaction Status Date / Time No Known Allergies Allergy Verified 09/08/20 11:32 Physical Exam Osteopathic Statement: *. No significant issues noted on an osteopathic structural exam other than those noted in the History and Physical/Consult. Vitals: Vital Signs Temp Pulse Resp BP Pulse Ox 09/08/20 14:23 186/101 09/08/20 11:29 98.2 F 73 16 171/85 97 09/08/20 11:12 75 18 176/85 100 09/08/20 08:27 97.6 F 71 16 203/98 98 Intake and Output 09/08/20 09/08/20 09/08/20 06:59 14:59 22:59 Other: Weight 77.111 kg Gen: awake, alert HEENT: normocephalic, atraumatic, good hearing acuity, moist mucous membranes Resp: good air exchange, breathing comfortably with no accessory muscle use, clear to auscultation bilaterally without wheezes or crackles CVS: good distal perfusion x 4, regular rate and rhythm without murmurs GI: soft, left upper quadrant tenderness to palpation, ND : no SPT, no CVAT, baird catheter not present MSK: no pitting edema, no clubbing Neuro: non-focal, moving all extremities Psych: cooperative, euthymic mood Results CBC & Chem 7: 09/08/20 08:50 09/08/20 08:50 Labs: Abnormal Lab Results - Last 24 Hours (Table) 09/08/20 09/08/20 09/08/20 Range/Units 08:40 08:50 08:50 WBC 14.5 H (3.8-10.6) k/uL Neutrophils # 13.0 H (1.3-7.7) k/uL Lymphocytes # 0.7 L (1.0-4.8) k/uL APTT 21.5 L (22.0-30.0) sec Sodium (137-145) mmol/L BUN (9-20) mg/dL Creatinine (0.66-1.25) mg/dL Glucose (74-99) mg/dL POC Glucose (mg/dL) 277 H (75-99) mg/dL Magnesium (1.6-2.3) mg/dL Urine Protein (Negative) Urine Glucose (UA) (Negative) Urine Ketones (Negative) 09/08/20 09/08/20 09/08/20 Range/Units 08:50 11:52 12:49 WBC (3.8-10.6) k/uL Neutrophils # (1.3-7.7) k/uL Lymphocytes # (1.0-4.8) k/uL APTT (22.0-30.0) sec Sodium 134 L (137-145) mmol/L BUN 25 H (9-20) mg/dL Creatinine 1.30 H (0.66-1.25) mg/dL Glucose 295 H (74-99) mg/dL POC Glucose (mg/dL) 253 H (75-99) mg/dL Magnesium 1.1 L (1.6-2.3) mg/dL Urine Protein Trace H (Negative) Urine Glucose (UA) 4+ H (Negative) Urine Ketones 2+ H (Negative) Assessment and Plan Assessment: Viral gastroenteritis -Admit to observation -IV fluids -Nausea control -Pain control -Advance diet as tolerated End-stage renal disease with DDKT Hypertension with hypertensive nephropathy Diabetes type 1 with diabetic nephropathy Hyperlipidemia Depression -Nephrology consult -Tacrolimus level -Urine electrolytes, creatinine, protein -Patient may warrant transfer to [facility] -Continue patient's home insulin pump plus sliding scale insulin -Continue home prednisone, tacrolimus, itraconazole -Continue home metoprolol -Hold home lisinopril Patient is a full code DVT prophylaxis with heparin 3 times a day is the POA
[2020-09-08] MEDS ORDERED: INSULIN ASPART (NovoLOG) 100 UNIT/ML VIAL SQ SCH (17:30)
[2020-09-08 18:33] LABS: Glucose,Whole Blood 189 mg/dL (75-99)
[2020-09-08 20:07] VITALS: RESP 16
[2020-09-08] MEDS ORDERED: MORPHINE SULFATE 2 MG/ML SYRINGE IVP STA (20:49)
[2020-09-08] MEDS ORDERED: traZODone HCL 50 MG TAB PO SCH (21:00)
[2020-09-08] MEDS ORDERED: ITRACONAZOLE 100 MG CAP PO SCH (21:00)
[2020-09-08] MEDS ORDERED: METOPROLOL TARTRATE 50 MG TAB PO SCH (21:00)
[2020-09-08] MEDS ORDERED: Tacrolimus [Envarsus Xr] 1 MG Tab.Er.24h PO SCH (21:00)
[2020-09-08 21:54] LABS: Glucose,Whole Blood 140 mg/dL (75-99)
[2020-09-09 00:33] VITALS: BP 154/73; PULSE 70; TEMP 98.5
[2020-09-09] MEDS: HEPARIN SODIUM,PORCINE/PF 5,000 UNIT/0.5 ML SYRINGE SQ SCH (00:41)
[2020-09-09] MEDS: MORPHINE SULFATE 4 MG/ML SYRINGE IV PRN (01:19)
[2020-09-09] MEDS ORDERED: PANTOPRAZOLE 40 MG TABLET PO SCH (07:30)
[2020-09-09] MEDS ORDERED: TACROLIMUS 0.75 MG PO SCH (09:00)
[2020-09-09] MEDS ORDERED: predniSONE 10 MG TAB PO SCH ×2 (09:00)
[2020-09-09] MEDS ORDERED: buPROPion SR 100 MG TABLET.ER PO SCH (09:00)
--- NOTE | 2020-09-09 11:15 | P.DS ---
Providers Date of admission: 09/08/20 12:32 Expected date of discharge: 09/09/20 Attending physician: Ajit Beckham MD Consults: 09/08/20 12:34 Consult Physician Routine Consulting Provider: Jennifer Ling Consult Reason/Comments: MILENA in renal transplant Do you want consulting provider notified?: Yes Primary care physician: Stated None Hospital Course: 45 year old man with ESRD s/p DDKT one year ago on chronic immunosuppression, HTN/DM/HLD, GERD, Depression presented with nausea, vomiting, diarrhea. Patient says that starting one week ago, he noticed that his acid reflux symptoms were becoming unbearable, and had started to consume increasing amounts of baking soda mixed with water. In the last 2 days, he started to develop severe nausea, vomiting, and diarrhea with abdominal cramping. He says that over the last day, he has vomited every 10 minutes for several hours leading up to ER visit. Every time he had an emesis episode, he lost control of his bowel as well. The vomitus was mostly bilious, though he has a history of PUD and was concerned about some red flecks in the vomitus. He tried to stay hydrated, but started to become concerned with the amount of vomitus and diarrhea mixed with developing headache which he relates to dehydration, prompting his concern and admission. Notably, he was told recently that he would require donor kidney biopsy for worsening creatinine up to 2.1 from baseline of 1.2. Today, he is HDS, afebrile. However, he is having trouble tolerating PO, and though his pain has improved with morphine, and nausea improved but not resolved with zofran. He still has not tolerated PO intake. Cr today is better than previous values at 1.3, down from 1.9 a few weeks ago. WBC is elevated at 14.5. UA is + for ketones and glucose. CT A/P demonstrates evidence of enteritis. Initial plan is to admit patient for IVF hydration and nephrology consult. Viral gastroenteritis -Admitted to observation, started on IVF, provided nausea and pain control with plan to advance diet as tolerated. However, patient's transplant team requested his transfer to [facility] and this was completed overnight. End-stage renal disease with DDKT Hypertension with hypertensive nephropathy Diabetes type 1 with diabetic nephropathy Hyperlipidemia Depression Patient transferred to [facility]. Patient Condition at Discharge: Fair Plan - Discharge Summary New Discharge Prescriptions: No Action Magnesium Oxide [Mag-Ox] 1,200 mg PO DIRECTED Insulin Aspart (For Pump) [NovoLOG (For Pump)] 0.01 unit SQ-PUMP CONTINUOUS traZODone HCL 50 mg PO HS Tacrolimus [Envarsus Xr] 1 mg PO DIRECTED Aspirin EC [Ecotrin] 325 mg PO DIRECTED buPROPion HCL [buPROPion HCL ER] 200 mg PO QAM lisinopriL [Zestril] 5 mg PO DAILY predniSONE 10 mg PO DAILY Tacrolimus [Envarsus Xr] 2.25 mg PO DIRECTED hydrOXYzine HCL [Atarax] 25 mg PO BID PRN PRN Reason: sleep Itraconazole [Sporanox] 200 mg PO BID Metoprolol Tartrate [Lopressor] 50 mg PO BID Omeprazole Magnesium [PriLOSEC] 20 mg PO DAILY predniSONE 10 mg PO DAILY Discharge Medication List Magnesium Oxide [Mag-Ox] 1,200 mg PO DIRECTED 02/17/15 [History] Insulin Aspart (For Pump) [NovoLOG (For Pump)] 0.01 unit SQ-PUMP CONTINUOUS 11/02/18 [History] Tacrolimus [Envarsus Xr] 1 mg PO DIRECTED 03/29/19 [History] traZODone HCL 50 mg PO HS 03/29/19 [History] Aspirin EC [Ecotrin] 325 mg PO DIRECTED 09/08/20 [History] Itraconazole [Sporanox] 200 mg PO BID 09/08/20 [History] Metoprolol Tartrate [Lopressor] 50 mg PO BID 09/08/20 [History] Omeprazole Magnesium [PriLOSEC] 20 mg PO DAILY 09/08/20 [History] Tacrolimus [Envarsus Xr] 2.25 mg PO DIRECTED 09/08/20 [History] buPROPion HCL [buPROPion HCL ER] 200 mg PO QAM 09/08/20 [History] hydrOXYzine HCL [Atarax] 25 mg PO BID PRN 09/08/20 [History] lisinopriL [Zestril] 5 mg PO DAILY 09/08/20 [History] predniSONE 10 mg PO DAILY 09/08/20 [History] predniSONE 10 mg PO DAILY 09/08/20 [History] Follow up Appointment(s)/Referral(s): None,Stated [Primary Care Provider] - 1-2 days Discharge Disposition: OTHER INSTITUTION NOT DEFINED
== END 2020-09-09 02:07 | disposition short-term general hospital (02) ==
LOC: EC 08:21 → 1SOBS 12:32 → 6NMEDSUR 16:24
PROVIDERS: ADMIT Internal Medicine; ATTEND Internal Medicine
DX: E86.0 Dehydration (principal); A08.4 Viral intestinal infection, unspecified; D84.821 Immunodeficiency due to drugs; E10.22 Type 1 diabetes mellitus with diabetic chronic kidney disease; E10.319 Type 1 diabetes mellitus with unspecified diabetic retinopathy without macular edema; E78.5 Hyperlipidemia, unspecified; F32.9 Major depressive disorder, single episode, unspecified; F41.0 Panic disorder [episodic paroxysmal anxiety]; I12.0 Hypertensive chronic kidney disease with stage 5 chronic kidney disease or end stage renal disease; I25.10 Atherosclerotic heart disease of native coronary artery without angina pectoris; K21.9 Gastro-esophageal reflux disease without esophagitis; N17.9 Acute kidney failure, unspecified; Z20.822 Contact with and (suspected) exposure to COVID-19; N18.6 End stage renal disease; T86.19 Other complication of kidney transplant; Y83.0 Surgical operation with transplant of whole organ as the cause of abnormal reaction of the patient, or of later complication, without mention of misadventure at the time of the procedure; Z79.4 Long term (current) use of insulin; Z79.899 Other long term (current) drug therapy; Z87.11 Personal history of peptic ulcer disease; Z87.891 Personal history of nicotine dependence; Z96.41 Presence of insulin pump (external) (internal)
CPT/HCPCS: 96376 ×3; 96361; 96365; 96366; 96372; 96375; 99285; 36415; 93005; 84300; 82570; 80053; 80197; 84156; 83605; 83690; 83735; 85025; 85610; 85730; 81003; 87040; 87635; 71045; 74176; G0378 ×3; J2270 ×3; J2765; J2405; J3475; J1644

== ENCOUNTER → 2024-01-06 | Outpatient (CLI) | payer MEDICARE ==
--- NOTE | 2024-01-07 10:47 | MR ---
EXAMINATION TYPE: MR orbits wo/w con DATE OF EXAM: 01/06/2024 1:17 PM COMPARISON: None CLINICAL INDICATION: Male, 48 years old with history of H54.42A5 L EYE BLINDESS, NORMAL R EYE; PH, Le ft eye blindness TECHNIQUE: Multi planar, multi sequence imaging was performed through the orbits/face. Post contrast imaging was performed after the administration of 7ml mL Gadavist FINDINGS, ORBITS: Diffuse left retinal detachment with associated high T1 signal blood products. The right orbit and globe appear intact. The optic nerves appear within normal limits bilaterally. The i ntraorbital fat appears preserved. Both lacrimal glands are unremarkable. The extraocular muscles ap pear symmetric. After administration of contrast, no abnormal enhancement is seen. The bone marrow signal is within normal limits. Paranasal sinuses and mastoid air cells: No significant paranasal sinus disease. Visualized orbits: Orbital contents are intact. IMPRESSION: 1. Findings concerning for diffuse left retinal detachment. 2. No evidence of intraorbital mass. [facility], , 01/07/2024 10:45 AM
== END | disposition home or self-care (01) ==
LOC: RADMRIMAIN 11:50
PROVIDERS: ATTEND Ophthalmology
DX: H54.42A5 Blindness left eye category 5, normal vision right eye (principal)
CPT/HCPCS: 70543; A9585